=== PATIENT | female | born 1995 | race Hispanic/Latino ===

== ENCOUNTER 2018-06-01 20:40 | Emergency (ER) | payer BC ==
[2018-06-01 21:23] VITALS: BP 147/105
--- NOTE | 2018-06-01 22:46 | XRay Report ---
FINAL REPORT EXAM: XR CHEST ROUTINE 2V HISTORY: [place] TECHNIQUE: 2 views of the chest. PRIORS: None. FINDINGS: The cardiomediastinal silhouette appears normal. The lungs are clear. The bones and soft tissues are unremarkable. IMPRESSION: No evidence of acute cardiopulmonary disease
--- NOTE | 2018-06-01 23:40 | Emergency Department Report ---
- General Chief Complaint: Upper Respiratory Infection Stated Complaint: BENTLEY Time Seen by Provider: 06/01/18 23:21 Source: patient Mode of arrival: Ambulatory Limitations: No Limitations - History of Present Illness Initial Comments: Patient 23-year-old white female who presents with productive cough clear 3 weeks with sinus and head congestion postnasal drip and rhinorrhea or sore throat symptoms are exacerbated by activity patient has not taken [id number] cold medications no fevers no chills no nausea vomiting shortness of breath no wheezing patient does endorse history of sinusitis. MD Complaint: fever, sore throat, rhinorrhea, nasal congestion, sinus pain Onset/Timin -: week(s) Severity: moderate Severity scale (0 -10): 4 Quality: sharp Consistency: constant Improves With: rest Worsens With: activity Context: sick contacts Associated Symptoms: fever, chills, myalgias, headache, rhinorrhea, nasal congestion, sore throat, cough. denies: chest pain, shortness of breath, nausea, vomiting, epistaxis, hoarseness Treatments Prior to Arrival: none - Related Data Previous Rx's Medication Instructions Recorded Last Taken Type oxyCODONE /ACETAMINOPHEN [Percocet 2 tab PO Q4H PRN #30 tablet 08/01/14 Unknown Rx 5/325 mg] Famotidine [Pepcid] 20 mg PO BID #20 tablet 08/05/14 Unknown Rx LORazepam [Ativan] 1 mg PO TID PRN #15 tablet 08/05/14 Unknown Rx Amoxicillin/Potassium Clav 1 each PO BID #20 tablet 06/01/18 Unknown Rx [Augmentin 875-125 Tablet] Benzonatate [Tessalon Perles] 100 mg PO Q8HR PRN #30 capsule 06/01/18 Unknown Rx Dexamethasone [Decadron] 4 mg PO BID #6 tablet 06/01/18 Unknown Rx Ibuprofen 800 mg PO TID PRN #30 tablet 06/01/18 Unknown Rx Allergies Allergy/AdvReac Type Severity Reaction Status Date / Time No Known Allergies Allergy Unverified 07/10/14 18:23 ED Review of Systems ROS: Stated complaint: BENTLEY Other details as noted in HPI Constitutional: chills, fever, malaise Eyes: denies: eye pain, eye discharge, vision change ENT: ear pain, throat pain, congestion Respiratory: cough Cardiovascular: denies: chest pain, palpitations Endocrine: no symptoms reported Gastrointestinal: denies: abdominal pain, nausea, vomiting, diarrhea Genitourinary: denies: urgency, dysuria, frequency, discharge Musculoskeletal: denies: back pain, joint swelling, arthralgia Skin: denies: rash, lesions Neurological: headache. denies: weakness, numbness, paresthesias, confusion, abnormal gait, vertigo Psychiatric: denies: anxiety, depression Hematological/Lymphatic: denies: easy bleeding, easy bruising ED Past Medical Hx - Past Medical History Previous Medical History?: Yes Hx Hypertension: No Hx Heart Attack/AMI: No Hx Congestive Heart Failure: No Hx Diabetes: No Hx Liver Disease: No Hx Seizures: No Hx Asthma: No Hx COPD: No Additional medical history: Ovarian Cysts 08/04 - Surgical History Past Surgical History?: Yes Additional Surgical History: tonsillectomy, 2 ovarian cysts removed left side. - Social History Smoking Status: Former Smoker Substance Use Type: None - Medications Home Medications: Home Medications Medication Instructions Recorded Confirmed Last Taken Type oxyCODONE /ACETAMINOPHEN [Percocet 2 tab PO Q4H PRN #30 tablet 08/01/14 12/03/14 Unknown Rx 5/325 mg] Famotidine [Pepcid] 20 mg PO BID #20 tablet 08/05/14 12/03/14 Unknown Rx LORazepam [Ativan] 1 mg PO TID PRN #15 tablet 08/05/14 12/03/14 Unknown Rx Amoxicillin/Potassium Clav 1 each PO BID #20 tablet 06/01/18 Unknown Rx [Augmentin 875-125 Tablet] Benzonatate [Tessalon Perles] 100 mg PO Q8HR PRN #30 capsule 06/01/18 Unknown Rx Dexamethasone [Decadron] 4 mg PO BID #6 tablet 06/01/18 Unknown Rx Ibuprofen 800 mg PO TID PRN #30 tablet 06/01/18 Unknown Rx ED Physical Exam - General Limitations: No Limitations General appearance: alert, in no apparent distress - Head Head exam: Present: atraumatic, normocephalic - Eye Eye exam: Present: normal appearance, PERRL, EOMI Pupils: Present: normal accommodation - ENT ENT exam: Present: mucous membranes moist - Expanded ENT Exam Expanded TM/Canal exam: Erythema: Left TM, Canal Tenderness: Left TM Mouth exam: Present: normal external inspection, other (bilat maxillary sinus pain to palpation no swelling no no erythema no swelling ). Absent: trismus Teeth exam: Present: normal inspection Throat exam: Positive: tonsillar erythema, tonsillomegaly, other (uvula midline no stridor no wheezing no edema no exuate no lesions airway is patent ). Negative: tonsillar exudate, R peritonsillar mass, L peritonsillar mass - Neck Neck exam: Present: normal inspection, full ROM. Absent: tenderness, meningismus, lymphadenopathy, thyromegaly - Respiratory Respiratory exam: Present: normal lung sounds bilaterally. Absent: respiratory distress, wheezes, rhonchi, stridor, chest wall tenderness - Cardiovascular Cardiovascular Exam: Present: regular rate, normal rhythm, normal heart sounds. Absent: systolic murmur, diastolic murmur, rubs, gallop - GI/Abdominal GI/Abdominal exam: Present: soft, normal bowel sounds - Rectal Rectal exam: Present: deferred - Extremities Exam Extremities exam: Present: normal inspection - Back Exam Back exam: Present: normal inspection, full ROM. Absent: CVA tenderness (R), CVA tenderness (L) - Neurological Exam Neurological exam: Present: alert, oriented X3, CN II-XII intact, normal gait - Psychiatric Psychiatric exam: Present: normal affect, normal mood - Skin Skin exam: Present: warm, dry, intact, normal color. Absent: rash ED Course Vital Signs 06/01/18 20:54 Temperature 98.2 F Pulse Rate 79 Respiratory 16 Rate Blood Pressure 147/105 O2 Sat by Pulse 100 Oximetry ED Medical Decision Making - Radiology Data Radiology results: report reviewed, image reviewed Findings [facility] [address] [place] [address] XRay Report Signed Patient: CHELA CRUZ MR#: [id number] : 1995 Acct:[id number] Age/Sex: 23 / F ADM Date: 06/01/18 Loc: ED Attending Dr: Ordering Physician: WILLIE WHITFIELD MD Date of Service: 06/01/18 Procedure(s): XR chest routine 2V Accession Number(s): [id number] cc: ED MD NAHID Fluoro Time In Minutes: FINAL REPORT EXAM: XR CHEST ROUTINE 2V HISTORY: [place] TECHNIQUE: 2 views of the chest. PRIORS: None. FINDINGS: The cardiomediastinal silhouette appears normal. The lungs are clear. The bones and soft tissues are unremarkable. IMPRESSION: No evidence of acute cardiopulmonary disease Transcribed By: MLG Dictated By: PRECIOUS GARCIA MD Electronically Authenticated By: PRECIOUS GARCIA MD Signed Date/Time: 06/01/18 5810 - Medical Decision Making This is AOM with sinusitis URI will treat for signing structures raise normal no opacities no infiltrates plan Augmentin and ibuprofen Decadron Tessalon Perles refill albuterol inhaler when necessary patient with hypertensive episode this visit does not have diagnosis of hypertension will maintain BP log and bring in to follow-up R there is no chest pain no nausea vomiting no back pain dizziness no lightheadedness is A/O 3 hammertoe a steady gait with no acute distress store symptoms are only complaint, pt verbalized agreement and understanding with discharge plan. Critical care attestation.: If time is entered above; I have spent that time in minutes in the direct care of this critically ill patient, excluding procedure time. ED Disposition Clinical Impression: Sinusitis Qualifiers: Sinusitis location: maxillary Chronicity: acute Recurrence: non-recurrent Qualified Code(s): J01.00 - Acute maxillary sinusitis, unspecified AOM (acute otitis media) Qualifiers: Otitis media type: serous Laterality: left Recurrence: non-recurrent Qualified Code(s): H65.02 - Acute serous otitis media, left ear Upper respiratory infection Qualifiers: URI type: unspecified viral URI Qualified Code(s): J06.9 - Acute upper respiratory infection, unspecified Disposition: - TO HOME OR SELFCARE Is pt being admited?: No Does the pt Need Aspirin: No Condition: Stable Instructions: Sinusitis (ED), Otitis Media (ED), Upper Respiratory Infection (ED) Prescriptions: Amoxicillin/Potassium Clav [Augmentin 875-125 Tablet] 1 each PO BID #20 tablet Benzonatate [Tessalon Perles] 100 mg PO Q8HR PRN #30 capsule PRN Reason: Cough Dexamethasone [Decadron] 4 mg PO BID #6 tablet Ibuprofen 800 mg PO TID PRN #30 tablet PRN Reason: pain fever Referrals: PRIMARY CARE, [Primary Care Provider] - 3-5 Days Forms: Work/School Release Form(ED) Time of Disposition: 23:53
== END 2018-06-02 00:10 | disposition home or self-care (01) ==
LOC: ED 20:40
DX: J01.00 Acute maxillary sinusitis, unspecified (principal); H65.02 Acute serous otitis media, left ear; J06.9 Acute upper respiratory infection, unspecified; Z87.891 Personal history of nicotine dependence
CPT/HCPCS: 71046; 93005; 93010; 99283

== ENCOUNTER 2019-09-30 11:02 | Emergency (ER) | payer SELFPAY ==
[2019-09-30] MEDS ORDERED: SODIUM CHLORIDE 0.9% 1000 ML 1,000 ML IV ONE (11:10)
[2019-09-30] MEDS ORDERED: ONDANSETRON 4 MG/2 ML INJ IV ONE (11:10)
[2019-09-30] MEDS ORDERED: HYDROmorphone 1 MG/1 ML INJ IV ONE (11:10)
[2019-09-30] MEDS ORDERED: LORazepam 2 MG/ML VIAL IV ONE (11:11)
--- NOTE | 2019-09-30 11:15 | Emergency Department Report ---
ED Abdominal Pain HPI - General Chief Complaint: Abdominal Pain Stated Complaint: ABD PAIN Time Seen by Provider: 09/30/19 11:08 Source: patient, family Mode of arrival: Wheelchair Limitations: No Limitations - History of Present Illness Initial Comments: Chief complaint: " My ovaries and ulcer are hurting" HPI this is a 24-year-old female with history of peptic ulcer disease and ovarian cyst who presents with epigastric and pelvic pain. She is currently menstruating. She denies any fever. She denies any vaginal discharge otherwise. She has had pain similar on previous occasion. Has nausea without vomiting. Gradual onset of symptoms 2 days ago. Burning pain in the epigastrium. Sharp pain bilateral pelvic region. No radiation or migration of either pain. MD Complaint: abdominal pain -: Gradual, days(s) (2) Location: epigastric (Bilateral pelvis) Radiation: none Severity: severe Severity scale (0 -10): 10 Quality: sharp, burning Consistency: constant Improves With: nothing Worsens With: nothing Context: other (Currently menstruating this is her normal menstrual cycle) - Related Data Previous Rx's Medication Instructions Recorded Last Taken Type oxyCODONE /ACETAMINOPHEN [Percocet 2 tab PO Q4H PRN #30 tablet 08/01/14 Unknown Rx 5/325 mg] Famotidine [Pepcid] 20 mg PO BID #20 tablet 08/05/14 Unknown Rx LORazepam [Ativan] 1 mg PO TID PRN #15 tablet 08/05/14 Unknown Rx Amoxicillin/Potassium Clav 1 each PO BID #20 tablet 06/01/18 Unknown Rx [Augmentin 875-125 Tablet] Benzonatate [Tessalon Perles] 100 mg PO Q8HR PRN #30 capsule 06/01/18 Unknown Rx Ibuprofen [Ibuprofen 800] 800 mg PO TID PRN #30 tablet 06/01/18 Unknown Rx dexAMETHasone [Decadron] 4 mg PO BID #6 tablet 06/01/18 Unknown Rx ALBUTEROL Inhaler(NF) [VENTOLIN 2 puff IH Q4H PRN #1 inha 06/02/18 Unknown Rx Inhaler(NF)] HYDROcodone/APAP 5-325 [[place] 1 each PO Q6HR PRN #10 tablet 09/30/19 Unknown Rx 5/325] Promethazine [Phenergan] 25 mg PO Q6HR PRN #10 tab 09/30/19 Unknown Rx Allergies Allergy/AdvReac Type Severity Reaction Status Date / Time No Known Allergies Allergy Unverified 07/10/14 18:23 ED Review of Systems ROS: Stated complaint: ABD PAIN Other details as noted in HPI Comment: All other systems reviewed and negative Constitutional: denies: fever, malaise Respiratory: denies: cough Cardiovascular: denies: chest pain Gastrointestinal: abdominal pain, nausea Genitourinary: denies: urgency, dysuria, frequency, hematuria, discharge, abnormal menses, dyspareunia ED Past Medical Hx - Past Medical History Previous Medical History?: Yes Hx Hypertension: No Hx Heart Attack/AMI: No Hx Congestive Heart Failure: No Hx Diabetes: No Hx Liver Disease: No Hx Seizures: No Hx Asthma: No Hx COPD: No Additional medical history: Ovarian Cysts 08/04, peptic ulcer disease - Surgical History Past Surgical History?: Yes Additional Surgical History: tonsillectomy, 2 ovarian cysts removed left side. - Social History Smoking Status: Former Smoker Substance Use Type: None - Medications Home Medications: Home Medications Medication Instructions Recorded Confirmed Last Taken Type oxyCODONE /ACETAMINOPHEN [Percocet 2 tab PO Q4H PRN #30 tablet 08/01/14 12/03/14 Unknown Rx 5/325 mg] Famotidine [Pepcid] 20 mg PO BID #20 tablet 08/05/14 12/03/14 Unknown Rx LORazepam [Ativan] 1 mg PO TID PRN #15 tablet 08/05/14 12/03/14 Unknown Rx Amoxicillin/Potassium Clav 1 each PO BID #20 tablet 06/01/18 Unknown Rx [Augmentin 875-125 Tablet] Benzonatate [Tessalon Perles] 100 mg PO Q8HR PRN #30 capsule 06/01/18 Unknown Rx Ibuprofen [Ibuprofen 800] 800 mg PO TID PRN #30 tablet 06/01/18 Unknown Rx dexAMETHasone [Decadron] 4 mg PO BID #6 tablet 06/01/18 Unknown Rx ALBUTEROL Inhaler(NF) [VENTOLIN 2 puff IH Q4H PRN #1 inha 06/02/18 Unknown Rx Inhaler(NF)] HYDROcodone/APAP 5-325 [[place] 1 each PO Q6HR PRN #10 tablet 09/30/19 Unknown Rx 5/325] Promethazine [Phenergan] 25 mg PO Q6HR PRN #10 tab 09/30/19 Unknown Rx ED Physical Exam - General Limitations: No Limitations General appearance: alert, anxious, other (Anxious crying wailling ) - Head Head exam: Present: atraumatic, normocephalic - Eye Eye exam: Present: normal appearance - ENT ENT exam: Present: mucous membranes moist - Neck Neck exam: Present: normal inspection, full ROM - Respiratory Respiratory exam: Present: normal lung sounds bilaterally. Absent: respiratory distress, wheezes, rales, rhonchi - Cardiovascular Cardiovascular Exam: Present: regular rate, normal rhythm, normal heart sounds. Absent: systolic murmur, diastolic murmur, rubs, gallop - GI/Abdominal GI/Abdominal exam: Present: soft, normal bowel sounds. Absent: distended, tenderness, guarding, rebound - Extremities Exam Extremities exam: Present: normal inspection - Neurological Exam Neurological exam: Present: alert, oriented X3 - Psychiatric Psychiatric exam: Present: anxious - Skin Skin exam: Present: warm, dry, intact, normal color. Absent: rash ED Course Vital Signs 09/30/19 11:06 Temperature 97.5 F L Pulse Rate 102 H Blood Pressure 126/102 [Left] O2 Sat by Pulse 97 Oximetry ED Medical Decision Making - Lab Data Result diagrams: 09/30/19 12:33 09/30/19 12:33 - Radiology Data Radiology results: report reviewed 3.9 cm ovarian cyst on pelvic ultrasound - Medical Decision Making 1. Pelvic pain due to ovarian cyst: Pain improved with treatment provided in the emergency department 2. Elevated lipase likely indicative of duodenitis peptic ulcer disease patient is not drink alcohol 3. Mental health was evaluated because she stated the pain was so severe that she did not want to live anymore. Once her pain was controlled I asked her repeatedly if she had acute depression or suicidal ideation. She denied depression. She denies suicidal ideation. She is discharged home with prescription for [place] promethazine. On serial abdominal exams: Soft nontender abdomen without rebound without guarding I do not suspect acute inflammatory intra-abdominal process such as cholecystitis or appendicitis. Patient verbalized understanding of return instructions. Critical care attestation.: If time is entered above; I have spent that time in minutes in the direct care of this critically ill patient, excluding procedure time. ED Disposition Clinical Impression: Ovarian cyst, Peptic ulcer disease Disposition: TO HOME OR SELFCARE Is pt being admited?: No Does the pt Need Aspirin: No Condition: Stable Instructions: Ovarian Cyst (ED), Peptic Ulcer (ED) Prescriptions: HYDROcodone/APAP 5-325 [[place] 5/325] 1 each PO Q6HR PRN #10 tablet PRN Reason: Pain Promethazine [Phenergan] 25 mg PO Q6HR PRN #10 tab PRN Reason: Nausea Referrals: LINDSEY BURNETTE MD [Staff Physician] - 3-5 Days
--- NOTE | 2019-09-30 12:47 | Ultrasound Report ---
US pelvic complete, US transvaginal INDICATION / CLINICAL INFORMATION: Abdominal Pain. COMPARISON: None available. FINDINGS: Uterus measures 8.0 x 3.6 x 4.1 cm. The endometrial echo complex measures 3 mm. No uterine lesions ar e seen. There is a 1.3 cm right ovarian cyst. There is a 3.9 cm left ovarian cyst. Flow is seen to both ovari es. No free fluid is seen in the pelvis. IMPRESSION: 1. 3.9 cm left ovarian cyst contains a few internal septations. 2. No sonographic evidence of ovarian torsion. 3. Uterus is unremarkable. Signer Name: Nain Umanzor MD Signed: 09/30/2019 12:43 PM Workstation Name: [id number]
[2019-09-30 12:55] LABS: Basophils % (Auto) 0.4 % (0.0-1.8); Eosinophils # (Auto) 0.2 K/mm3 (0.0-0.4); Eosinophils % (Auto) 2.3 % (0.0-4.3); Hemoglobin 15.3 gm/dl (10.1-14.3); Lymphocytes # (Auto) 2.2 K/mm3 (1.2-5.4); Lymphocytes % (Auto) 21.4 % (13.4-35.0); Mean Corpuscular HGB Conc 34 % (30-34); Mean Corpuscular Volume 95 fl (79-97); Monocytes # (Auto) 0.6 K/mm3 (0.0-0.8); Monocytes % (Auto) 5.5 % (0.0-7.3); Platelet Count 247 K/mm3 (140-440); Red Blood Count 4.73 M/mm3 (3.65-5.03); Red Cell Distribution Width 14.2 % (13.2-15.2)
[2019-09-30 13:16] LABS: BUN/Creatinine Ratio 24; Blood Urea Nitrogen 17 mg/dL (7-17); Calcium 8.9 mg/dL (8.4-10.2); Hemolysis Index 145
[2019-09-30 13:31] LABS: Bilirubin,Urine NEG (Negative); Blood,Urine LG (Negative); Color,Urine Red (Yellow); Mucus,Urine 1+ /HPF; RBC,Urine > 182.0 /HPF (0.0-6.0); Urobilinogen,Urine < 2.0 mg/dL (<2.0)
[2019-09-30] MEDS ORDERED: oxyCODONE /ACETAMINOPHEN 5-325MG TAB PO ONE ×2 (14:09)
[2019-10-02 12:36] VITALS: BP 107/73
== END 2019-09-30 14:17 | disposition home or self-care (01) ==
LOC: ED 11:02
DX: N83.209 Unspecified ovarian cyst, unspecified side (principal); K27.9 Peptic ulcer, site unspecified, unspecified as acute or chronic, without hemorrhage or perforation; Z90.89 Acquired absence of other organs; Z98.890 Other specified postprocedural states; Z87.891 Personal history of nicotine dependence; Z79.1 Long term (current) use of non-steroidal anti-inflammatories (NSAID); Z79.2 Long term (current) use of antibiotics; Z79.899 Other long term (current) drug therapy
CPT/HCPCS: 36415; 76830; 76856; 80048; 81001; 83690; 84702; 85025; 87086; 96374; 96375; 99285; J1170; J2060; J2405; J7030

== ENCOUNTER 2019-10-01 03:34 | Emergency (ER) | payer SELFPAY ==
[2019-10-02 13:05] VITALS: BP 131/93
== END 2019-10-01 04:19 | disposition left against medical advice (07) ==
LOC: ED 03:34
DX: R10.30 Lower abdominal pain, unspecified (principal); Z53.21 Procedure and treatment not carried out due to patient leaving prior to being seen by health care provider

== ENCOUNTER 2019-10-06 15:34 | Emergency (ER) | payer SELFPAY ==
[2019-10-06] MEDS ORDERED: cloNIDine 0.1 MG TAB PO ONE (16:47)
[2019-10-06] MEDS ORDERED: ONDANSETRON 4 MG/2 ML INJ IM ONE (16:47)
[2019-10-06] MEDS ORDERED: MORPHINE 4 MG/1 ML INJ IM ONE (16:47)
[2019-10-06] MEDS ORDERED: ONDANSETRON 4 MG/2 ML INJ ONE (16:49)
[2019-10-06] MEDS ORDERED: MORPHINE 4 MG/1 ML INJ ONE (16:49)
--- NOTE | 2019-10-06 16:50 | Emergency Department Report ---
ED Abdominal Pain HPI - General Chief Complaint: Abdominal Pain Stated Complaint: LEFT SIDE PAIN Time Seen by Provider: 10/06/19 16:37 Source: patient Mode of arrival: Wheelchair Limitations: No Limitations - History of Present Illness Initial Comments: Patient is 24-year-old female with no significant past medical history. Patient presented to the ER complaining of left lower quadrant abdominal pain that been going on for approximately 7 days. Patient has been seen here multiple times for the same complaint in the last few days. Patient ultrasound showed a left ovarian cyst up to 4 cm with no torsion. Patient given hydrocodone and Phenergan suppository. Patient stated that the nausea and vomiting stopped but she still having the pain. Patient still denying any fever, chills, cough, shortness of breath or diarrhea. No vaginal bleeding or vaginal discharge. MD Complaint: abdominal pain -: days(s) (7) Location: LLQ Radiation: none - Related Data Previous Rx's Medication Instructions Recorded Last Taken Type oxyCODONE /ACETAMINOPHEN [Percocet 2 tab PO Q4H PRN #30 tablet 08/01/14 Unknown Rx 5/325 mg] Famotidine [Pepcid] 20 mg PO BID #20 tablet 08/05/14 Unknown Rx LORazepam [Ativan] 1 mg PO TID PRN #15 tablet 08/05/14 Unknown Rx Amoxicillin/Potassium Clav 1 each PO BID #20 tablet 06/01/18 Unknown Rx [Augmentin 875-125 Tablet] Benzonatate [Tessalon Perles] 100 mg PO Q8HR PRN #30 capsule 06/01/18 Unknown Rx Ibuprofen [Ibuprofen 800] 800 mg PO TID PRN #30 tablet 06/01/18 Unknown Rx dexAMETHasone [Decadron] 4 mg PO BID #6 tablet 06/01/18 Unknown Rx ALBUTEROL Inhaler(NF) [VENTOLIN 2 puff IH Q4H PRN #1 inha 06/02/18 Unknown Rx Inhaler(NF)] HYDROcodone/APAP 5-325 [[place] 1 each PO Q6HR PRN #10 tablet 09/30/19 Unknown Rx 5/325] Promethazine [Phenergan] 25 mg PO Q6HR PRN #10 tab 09/30/19 Unknown Rx DOXYCYCLINE Hyclate [Vibramycin 100 mg PO Q12HR #14 capsule 10/05/19 Unknown Rx CAP] Famotidine [Pepcid] 20 mg PO BID #30 tablet 10/05/19 Unknown Rx HYDROcodone/APAP 5-325 [[place] 1 - 2 each PO Q6HR PRN #10 tablet 10/05/19 Unknown Rx 5/325] Promethazine [Phenergan] 25 mg PO Q6HR PRN #20 tab 10/05/19 Unknown Rx Promethazine [Phenergan] 25 mg LA Q6HR PRN #5 supp.rect 10/05/19 Unknown Rx Allergies Allergy/AdvReac Type Severity Reaction Status Date / Time No Known Allergies Allergy Verified 10/06/19 15:38 ED Review of Systems ROS: Stated complaint: LEFT SIDE PAIN Other details as noted in HPI Comment: All other systems reviewed and negative Constitutional: denies: chills, fever Respiratory: denies: cough, shortness of breath, SOB with exertion, wheezing Cardiovascular: denies: chest pain, palpitations Gastrointestinal: abdominal pain. denies: nausea, vomiting, diarrhea, constipation, hematemesis, melena, hematochezia Musculoskeletal: denies: back pain Neurological: denies: headache, weakness, numbness, paresthesias, confusion ED Past Medical Hx - Past Medical History Hx Hypertension: No Hx Heart Attack/AMI: No Hx Congestive Heart Failure: No Hx Diabetes: No Hx Liver Disease: No Hx Seizures: No Hx Asthma: No Hx COPD: No Additional medical history: Ovarian Cysts 08/04, ulcers - Surgical History Additional Surgical History: tonsillectomy, 2 ovarian cysts removed left side. - Social History Smoking Status: Never Smoker Substance Use Type: None - Medications Home Medications: Home Medications Medication Instructions Recorded Confirmed Last Taken Type oxyCODONE /ACETAMINOPHEN [Percocet 2 tab PO Q4H PRN #30 tablet 08/01/14 12/03/14 Unknown Rx 5/325 mg] Famotidine [Pepcid] 20 mg PO BID #20 tablet 08/05/14 12/03/14 Unknown Rx LORazepam [Ativan] 1 mg PO TID PRN #15 tablet 08/05/14 12/03/14 Unknown Rx Amoxicillin/Potassium Clav 1 each PO BID #20 tablet 06/01/18 Unknown Rx [Augmentin 875-125 Tablet] Benzonatate [Tessalon Perles] 100 mg PO Q8HR PRN #30 capsule 06/01/18 Unknown Rx Ibuprofen [Ibuprofen 800] 800 mg PO TID PRN #30 tablet 06/01/18 Unknown Rx dexAMETHasone [Decadron] 4 mg PO BID #6 tablet 06/01/18 Unknown Rx ALBUTEROL Inhaler(NF) [VENTOLIN 2 puff IH Q4H PRN #1 inha 06/02/18 Unknown Rx Inhaler(NF)] HYDROcodone/APAP 5-325 [[place] 1 each PO Q6HR PRN #10 tablet 09/30/19 Unknown Rx 5/325] Promethazine [Phenergan] 25 mg PO Q6HR PRN #10 tab 09/30/19 Unknown Rx DOXYCYCLINE Hyclate [Vibramycin 100 mg PO Q12HR #14 capsule 10/05/19 Unknown Rx CAP] Famotidine [Pepcid] 20 mg PO BID #30 tablet 10/05/19 Unknown Rx HYDROcodone/APAP 5-325 [[place] 1 - 2 each PO Q6HR PRN #10 tablet 10/05/19 Unknown Rx 5/325] Promethazine [Phenergan] 25 mg PO Q6HR PRN #20 tab 10/05/19 Unknown Rx Promethazine [Phenergan] 25 mg LA Q6HR PRN #5 supp.rect 10/05/19 Unknown Rx ED Physical Exam - General Limitations: No Limitations General appearance: alert, in distress (Moderate distress secondary to pain.) - Head Head exam: Present: atraumatic, normocephalic, normal inspection - Eye Eye exam: Present: normal appearance - ENT ENT exam: Present: normal exam, normal orophraynx, mucous membranes moist. Absent: mucous membranes dry - Neck Neck exam: Present: normal inspection, full ROM. Absent: tenderness, meningismus - Respiratory Respiratory exam: Present: normal lung sounds bilaterally - Cardiovascular Cardiovascular Exam: Present: regular rate, normal rhythm, normal heart sounds - GI/Abdominal GI/Abdominal exam: Present: soft, normal bowel sounds. Absent: distended, tenderness, guarding, rebound, rigid, organomegaly, mass, bruit, pulsatile mass, hernia - Extremities Exam Extremities exam: Present: normal inspection, full ROM, normal capillary refill. Absent: pedal edema, calf tenderness - Back Exam Back exam: Present: normal inspection, full ROM. Absent: CVA tenderness (R), CVA tenderness (L) - Neurological Exam Neurological exam: Present: alert, oriented X3, CN II-XII intact, reflexes normal. Absent: normal gait, motor sensory deficit - Psychiatric Psychiatric exam: Present: normal mood - Skin Skin exam: Present: warm, intact, normal color ED Course Vital Signs 10/06/19 10/06/19 10/06/19 15:38 15:39 17:33 Temperature 97.8 F 97.8 F Pulse Rate 129 H 77 Respiratory 24 20 18 Rate Blood Pressure 163/114 163/114 130/84 Blood Pressure [Left] O2 Sat by Pulse 98 98 Oximetry 10/06/19 10/06/19 18:36 19:24 Temperature 97.5 F L Pulse Rate 77 91 H Respiratory 18 Rate Blood Pressure 130/84 Blood Pressure 154/100 [Left] O2 Sat by Pulse 100 Oximetry ED Medical Decision Making - Lab Data Result diagrams: 10/06/19 17:18 10/06/19 17:18 - Medical Decision Making Patient is 24-year-old female with no significant past medical history. Patient presented to the ER complaining of left lower quadrant abdominal pain that been going on for approximately 7 days. Patient has been seen here multiple times for the same complaint in the last few days. Patient ultrasound showed a left ovarian cyst up to 4 cm with no torsion. Patient given hydrocodone and Phenergan suppository. Patient stated that the nausea and vomiting stopped but she still having the pain. Patient still denying any fever, chills, cough, shortness of breath or diarrhea. No vaginal bleeding or vaginal discharge Patient previous record reviewed by me. Patient received multiple pain medication including morphine, Toradol and Dilaudid. Patient stated that she is feeling better now and her pain is much b chang. Patient advised to follow-up with her historic sites registrar in the next 2 to 3 days. Critical care attestation.: If time is entered above; I have spent that time in minutes in the direct care of this critically ill patient, excluding procedure time. ED Disposition Clinical Impression: Ovarian cyst, Abdominal pain Disposition: - TO HOME OR SELFCARE Is pt being admited?: No Condition: Stable Instructions: Abdominal Pain (ED) Referrals: PRIMARY CARE, [Primary Care Provider] - 3-5 Days
[2019-10-06 18:13] LABS: Basophils % (Auto) 0.4 % (0.0-1.8); Eosinophils % (Auto) 0.2 % (0.0-4.3); Hematocrit 44.1 % (30.3-42.9); Hemoglobin 14.5 gm/dl (10.1-14.3); Lymphocytes # (Auto) 2.9 K/mm3 (1.2-5.4); Lymphocytes % (Auto) 29.5 % (13.4-35.0); Mean Corpuscular HGB Conc 33 % (30-34); Mean Corpuscular Volume 94 fl (79-97); Monocytes # (Auto) 0.7 K/mm3 (0.0-0.8); Monocytes % (Auto) 7.3 % (0.0-7.3); Platelet Count 250 K/mm3 (140-440); Red Blood Count 4.69 M/mm3 (3.65-5.03)
[2019-10-06 18:23] LABS: BUN/Creatinine Ratio 17; Blood Urea Nitrogen 10 mg/dL (7-17); Hemolysis Index 8
[2019-10-06] MEDS ORDERED: KETOROLAC 60 MG/2 ML INJ ONE (18:27)
[2019-10-06] MEDS ORDERED: KETOROLAC 60 MG/2 ML INJ IM ONE (18:37)
[2019-10-06 19:26] VITALS: BP 154/100
[2019-10-06] MEDS ORDERED: HYDROmorphone 1 MG/1 ML INJ IM ONE (19:28)
== END 2019-10-06 21:00 | disposition home or self-care (01) ==
LOC: ED 15:34
DX: N83.292 Other ovarian cyst, left side (principal); Z90.79 Acquired absence of other genital organ(s); Z98.890 Other specified postprocedural states; Z79.899 Other long term (current) drug therapy
CPT/HCPCS: 36415; 80048; 85025; 96372; 99283; J1170; J1885; J2270; J2405

== ENCOUNTER 2019-10-26 07:58 | Inpatient (IN) | payer OTHER ==
--- NOTE | 2019-10-26 08:24 | Emergency Department Report ---
ED Female HPI - General Chief complaint: Abdominal Pain Stated complaint: LOWER STOMACH PAIN Time Seen by Provider: 10/26/19 08:21 Source: patient Mode of arrival: Wheelchair Limitations: No Limitations - History of Present Illness Initial comments: 24-year-old female presents to the emergency room complaining of severe abdominal pain. Patient reports that she was here for the same complaint and was diagnosed with PID yesterday and was supposed to see a MD this morning but states she could not wait as she was having severe pain nausea vomiting. Patient states she has not been able to hold down her medications that was prescribed to her. Patient was diagnosed also with an ovarian cyst on the left side. MD Complaint: pelvic pain Onset/Timin -: week(s) Location: suprapubic, LLQ Severity scale (0 -10): 10 Quality: cramping, sharp Consistency: constant Improves with: none Worsens with: none Are you Now?: No Last Menstrual Period: 09/21/19 EDC: 06/27/20 - Related Data Sexually active: Yes (3 months ago) Allergies Allergy/AdvReac Type Severity Reaction Status Date / Time No Known Allergies Allergy Verified 10/06/19 15:38 ED Review of Systems ROS: Stated complaint: LOWER STOMACH PAIN Other details as noted in HPI ED Past Medical Hx - Past Medical History Hx Hypertension: No Hx Heart Attack/AMI: No Hx Congestive Heart Failure: No Hx Diabetes: No Hx Liver Disease: No Hx Seizures: No Hx Asthma: No Hx COPD: No Additional medical history: Ovarian Cysts 08/04, ulcers - Surgical History Additional Surgical History: tonsillectomy, 2 ovarian cysts removed left side. - Social History Smoking Status: Current Every Day Smoker Substance Use Type: None ED Physical Exam - General Limitations: No Limitations General appearance: alert, in distress - Head Head exam: Present: atraumatic, normocephalic - Eye Eye exam: Present: normal appearance - ENT ENT exam: Present: mucous membranes moist - Respiratory Respiratory exam: Present: normal lung sounds bilaterally. Absent: respiratory distress - Cardiovascular Cardiovascular Exam: Present: regular rate, normal rhythm. Absent: systolic murmur, diastolic murmur, rubs, gallop - GI/Abdominal GI/Abdominal exam: Present: soft, tenderness, guarding. Absent: distended - Extremities Exam Extremities exam: Present: normal inspection - Back Exam Back exam: Present: normal inspection - Neurological Exam Neurological exam: Present: alert, oriented X3, abnormal gait - Psychiatric Psychiatric exam: Present: normal affect, normal mood - Skin Skin exam: Present: warm, dry, intact, normal color. Absent: rash ED Course Vital Signs 10/26/19 10/26/19 10/26/19 08:03 10:23 10:25 Temperature 98.9 F Pulse Rate 74 81 Respiratory 20 30 H 30 H Rate Blood Pressure 137/103 Blood Pressure 140/100 [Right] O2 Sat by Pulse 98 100 100 Oximetry ED Medical Decision Making - Lab Data Result diagrams: 10/26/19 08:08 10/26/19 08:08 Laboratory Tests 10/26/19 10/26/19 10/26/19 08:08 08:08 Unknown WBC 12.2 H RBC 4.36 Hgb 13.9 Hct 41.2 MCV 95 MCH 32 MCHC 34 RDW 13.7 Plt Count 270 Lymph % (Auto) 16.1 [place] % (Auto) 4.8 Eos % (Auto) 1.9 Baso % (Auto) 0.4 Lymph # 2.0 [place] # 0.6 Eos # 0.2 Baso # 0.0 Seg Neutrophils % 76.8 H Seg Neutrophils # 9.4 H Sodium 143 Potassium 3.9 Chloride 106.1 Carbon Dioxide 21 L Anion Gap 20 BUN 20 H Creatinine 0.7 Estimated GFR > 60 BUN/Creatinine Ratio 29 Glucose 97 Calcium 9.5 Total Bilirubin 0.30 AST 12 ALT 10 Alkaline Phosphatase 64 Total Protein 6.5 Albumin 4.1 Albumin/Globulin Ratio 1.7 Urine Color Yellow Urine Turbidity Clear Urine pH 6.0 Ur Specific [place] 1.023 Urine Protein 100 mg/dl Urine Glucose (UA) Neg Urine Ketones Neg Urine Blood Neg Urine Nitrite Neg Urine Bilirubin Neg Urine Urobilinogen < 2.0 Ur Leukocyte Esterase Neg Urine WBC (Auto) 2.0 Urine RBC (Auto) 5.0 U Epithel Cells (Auto) 2.0 Urine Mucus Few - Radiology Data Radiology results: report reviewed Referring Physician:DOMINGA CORRIGANPatient Name:CHELA CRUZPatient ID:[id number] of :[id number]:FemaleAccession:[id number] Date:3582-55-80Ysfwjd Status:Finalized Findings [facility] [address] [place] [address] Ultrasound Report Signed Patient: CHELA CRUZ MR#: [id number] : 1995 Acct:[id number] Age/Sex: 24 / F ADM Date: 10/24/19 Loc: ED Attending Dr: Ordering Physician: DOMINGA CORRIGAN MD Date of Service: 10/24/19 Procedure(s): US transvaginal Accession Number(s): [id number] cc: DOMINGA CORRIGAN MD TRANSABDOMINAL AND TRANSVAGINAL PELVIC ULTRASOUND INDICATION / CLINICAL INFORMATION: Severe/worsening left lower quadrant and left pelvic pain with nausea. COMPARISON: 10/05/2019. FINDINGS: TRANSABDOMINAL: The uterus measures approximately 5.9 x 3.4 x 3.4 cm. The endometrial stripe measures 6.2 mm AP. No fibroids are seen. The left ovary measures approximately 5.4 x 5.1 x 4.9 cm and contains a 3.6 cm hypoechoic mass. The right ovary is not seen. No free fluid is identified. TRANSVAGINAL: The uterus measures 7.0 x 3.5 x 3.5 cm. The endometrial stripe measures 5.5 mm AP. No fibroids are seen. The right ovary measures 4.5 x 4.4 x 4.6 cm and is focally heterogeneous anteriorly suggestive of a hemorrhagic cyst measuring approximately 3.7 cm. There is normal blood flow to the remainder of the right ovary on Doppler exam. The left ovary measures 6.9 x 4.1 x 5.2 cm. There is a 4.9 cm simple cyst in the left ovary. The left fallopian tube is moderately dilated. There is normal blood flow to the left ovary on Doppler exam. No free fluid is seen. IMPRESSION: 1. 4.9 cm simple left ovarian cyst has shown slight increase in size. Left hydrosalpinx has not changed. 2. 3.7 cm area of heterogeneity in the right ovary is a new finding and likely represents a hemorrhagic cyst. No evidence of ovarian torsion. Signer Name: Jamil Fraga MD Signed: 10/24/2019 12:00 PM Workstation Name: [id number] Transcribed By: RT Dictated By: Jamil Fraga MD Electronically Authenticated By: Jamil Fraga MD Signed Date/Time: 10/24/19 1200 DD/ 1152 TD/TT: Print Report Referring Physician:EDUARDO LOAIZAPatient Name:CHELA CRUZPatient ID:[id number] of :[id number]:FemaleAccession:[id number] Date:6322-64-21Nemlpv Status:Finalized Findings [facility] [address] [place] [address] Ultrasound Report Signed Patient: CHELA CRUZ MR#: [id number] : 1995 Acct:[id number] Age/Sex: 24 / F ADM Date: 10/26/19 Loc: ED Attending Dr: Ordering Physician: BARRY HOUGH Date of Service: 10/26/19 Procedure(s): US transvaginal Accession Number(s): [id number] cc: BARRY HOUGH US transvaginal, US pelvic complete INDICATION / CLINICAL INFORMATION: Pelvic pain. COMPARISON: 10/24/2019 FINDINGS: Uterus measures 7.2 cm. Myometrial echogenicity is normal. The endometrial stripe thickness is 0.5 cm. No change in the appearance of the dilated left fallopian tube or or the 2 simple left ovarian cysts. The heterogeneous right ovarian measures 3.7 cm head has not changed in size or echogenic character. No fluid collections are seen in the cul-de-sac. IMPRESSION: 1. No significant interval change in the appearance of the ultrasound. 2. The complex appearing right ovarian lesion is unchanged. Signer Name: Anibal Peralta MD Signed: 10/26/2019 10:03 AM Workstation Name: [id number] Transcribed By: AMI Dictated By: Anibal Peralta MD Electronically Authenticated By: Anibal Peralta MD Signed Date/Time: 10/26/19 1003 DD/ 0959 TD/TT: - Medical Decision Making 24-year-old female presents to the emergency room complaining of severe abdominal pain. Patient reports that she was here for the same complaint and was diagnosed with PID yesterday and was supposed to see a MD this morning but states she could not wait as she was having severe pain nausea vomiting. Barry mathews states she has not been able to hold down her medications that was prescribed to her. Patient was diagnosed also with an ovarian cyst on the left side. IV, normal saline, Rocephin 500 mg, azithromycin 500 mg IV, morphine 4 mg IV, Zofran 4 mg IV, repeat ultrasound pelvis with transvaginal. Patient has been given Dilaudid 1 mg IV and then another dose of Dilaudid 0.5 for pain management. Spoke to Dr. Rhoades [employer] she is willing to admit under observation. Went to inform patient that she will be admitted and she is tearful and rocking in the room. Will order 1 mg of Dilaudid as she will be transferred to [facility] labor and delivery floor. Critical care attestation.: If time is entered above; I have spent that time in minutes in the direct care of this critically ill patient, excluding procedure time. ED Disposition Clinical Impression: PID (acute pelvic inflammatory disease), Pelvic congestion syndrome Disposition: OP ADMIT IP TO THIS HOSP Is pt being admited?: Yes Does the pt Need Aspirin: No Condition: Stable Instructions: Abdominal Pain (ED)
[2019-10-26] MEDS ORDERED: SODIUM CHLORIDE 0.9% 1000 ML 1,000 ML IV ONE (08:26)
[2019-10-26] MEDS ORDERED: MORPHINE 4 MG/1 ML INJ IV ONE (08:26)
[2019-10-26] MEDS ORDERED: LIDOCAINE-MPF (1%) 10 MG/1 ML VIAL 5 ML INFILTRATI ONE (08:26)
[2019-10-26] MEDS ORDERED: AZITHROMYCIN 500 MG in SODIUM CHLORIDE 0.9% 250ML 250 ML IV ONE (08:26)
[2019-10-26] MEDS ORDERED: ONDANSETRON 4 MG/2 ML INJ IV ONE (08:26)
[2019-10-26] MEDS ORDERED: HYDROmorphone 1 MG/1 ML INJ IV ONE ×3 (08:56→12:58)
[2019-10-26] MEDS ORDERED: HYDROmorphone 1 MG/1 ML INJ ONE ×2 (08:58→13:01)
[2019-10-26 09:28] LABS: Basophils % (Auto) 0.4 % (0.0-1.8); Eosinophils # (Auto) 0.2 K/mm3 (0.0-0.4); Eosinophils % (Auto) 1.9 % (0.0-4.3); Hematocrit 41.2 % (30.3-42.9); Hemoglobin 13.9 gm/dl (10.1-14.3); Lymphocytes % (Auto) 16.1 % (13.4-35.0); Mean Corpuscular HGB Conc 34 % (30-34); Mean Corpuscular Volume 95 fl (79-97); Monocytes # (Auto) 0.6 K/mm3 (0.0-0.8); Monocytes % (Auto) 4.8 % (0.0-7.3); Platelet Count 270 K/mm3 (140-440); Red Blood Count 4.36 M/mm3 (3.65-5.03); Red Cell Distribution Width 13.7 % (13.2-15.2)
[2019-10-26 09:51] LABS: Alanine Aminotransferase 10 units/L (7-56); Albumin 4.1 g/dL (3.9-5); BUN/Creatinine Ratio 29; Blood Urea Nitrogen 20 mg/dL (7-17); Calcium 9.5 mg/dL (8.4-10.2); Hemolysis Index 4
--- NOTE | 2019-10-26 10:08 | Ultrasound Report ---
US transvaginal, US pelvic complete INDICATION / CLINICAL INFORMATION: Pelvic pain. COMPARISON: 10/24/2019 FINDINGS: Uterus measures 7.2 cm. Myometrial echogenicity is normal. The endometrial stripe thickness is 0.5 cm. No change in the appearance of the dilated left fallopian tube or or the 2 simple left ovarian cysts. The heterogeneous right ovarian measures 3.7 cm head has not changed in size or echogenic character. No fluid collections are seen in the cul-de-sac. IMPRESSION: 1. No significant interval change in the appearance of the ultrasound. 2. The complex appearing right ovarian lesion is unchanged. Signer Name: Anibal Peralta MD Signed: 10/26/2019 10:03 AM Workstation Name: [id number]
[2019-10-26 10:22] LABS: Bilirubin,Urine NEG (Negative); Blood,Urine NEG (Negative); Color,Urine Yellow (Yellow); Mucus,Urine FEW /HPF; Urobilinogen,Urine < 2.0 mg/dL (<2.0)
[2019-10-26] MEDS: KETOROLAC 30 MG/1 ML INJ IV PRN ×2 (14:47→22:03)
--- NOTE | 2019-10-26 15:18 | History and Physical Report ---
History of Present Illness Date of examination: 10/26/19 Date of admission: 10/26/19 12:06 Chief complaint: abdominal pain History of present illness: Pt is a 24 year old female nulligravida LMP September 2019 who presents from the ED secondary to severe abdominal pain. She has had six visits to the ED secondary to abdominal pain. She has had multiple imaging studies that reveal a normal uterus, 2 simple left ovarian cyst, a left hydrosalpinx, and a right co mplex 3.7 cm ovarian cyst. She was also diagnosed with PID within the past 10 days, but she reports being unable to tolerate the antibiotic and the pain medication due to frequent emesis which she attributes partially to her "peptic ulcer" which has gone primarily untreated due to her lack of health insurance until quite recently. She had an appt scheduled with an electric power line examiner later on the morning of presentation, but felt unable to wait for her appt due to pain. She has not had intercourse in 3 months. She has not been evaluated by a drug safety associate in over one year. While in the ED, her mother rescheduled her appt for this coming Tuesday10/29/19. 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 ovarian cystectomy ) Family/Genetic History: none, other (Anxiety per pt ) Social history: no significant social history - Obstetrical History : 0 Medications and Allergies Allergies Allergy/AdvReac Type Severity Reaction Status Date / Time No Known Allergies Allergy Verified 10/06/19 15:38 Home Medications Medication Instructions Recorded Confirmed Last Taken Type No Known Home Medications [No 10/27/19 10/27/19 Unknown History Reported Home Medications] Active Meds: Active Medications Cefepime HCl (Cefepime/Ns 2 Gm/100 Ml) 2 gm in 100 mls @ 200 mls/hr IV Q12HR ALINA; Protocol Doxycycline Hyclate 100 mg/ (Sodium Chloride) 250 mls @ 250 mls/hr IV Q12HR ALINA; Protocol Ketorolac Tromethamine (Toradol) 30 mg IV Q6H PRN PRN Reason: Pain, Moderate (4-6) Stop: 10/31/19 14:33 Last Admin: 10/26/19 14:47 Dose: 30 mg Documented by: Ondansetron HCl (Zofran) 4 mg IV Q4H PRN PRN Reason: Nausea And Vomiting Review of Systems All systems: negative Gastrointestinal: nausea, vomiting - Vital Signs Vital signs: Vital Signs Temp Pulse Resp BP Pulse Ox 98.9 F 74 20 137/103 98 10/26/19 08:03 10/26/19 08:03 10/26/19 08:03 10/26/19 08:03 10/26/19 08:03 Temp Pulse Resp BP Pulse Ox 97.3 F L 64 28 H 137/89 99 10/26/19 13:45 10/26/19 13:45 10/26/19 13:45 10/26/19 13:45 10/26/19 13:45 - Physical Exam Breasts: Positive: deferred Abdomen: Positive: soft, tenderness, guarding (voluntary). Negative: distention Extremities: Positive: normal Results Result Diagrams: 10/26/19 08:08 10/26/19 08:08 Abnormal lab results 10/26/19 10/26/19 Range/Units 08:08 08:08 WBC 12.2 H (4.5-11.0) K/mm3 Seg Neutrophils % 76.8 H (40.0-70.0) % Seg Neutrophils # 9.4 H (1.8-7.7) K/mm3 Carbon Dioxide 21 L (22-30) mmol/L BUN 20 H (7-17) mg/dL All other labs normal. Assessment and Plan A: Pelvic Pain Suspected PID Bilateral Ovarian Cyst Left Hydrosalpinx Peptic Ulcer Disease Nausea and Vomiting P: Admit for observation IV pain medication PRN IV Cefepime and Doxycycline as pt unable to tolerate PO antibiotics Pepcid IV BID Antiemetics PRN Close monitoring of clinical status
[2019-10-26] MEDS: CEFEPIME/NS 2 GM/100 ML 2 GM/100 ML BAG IV SCH ×2 (15:49→21:44)
[2019-10-26] MEDS: LACTATED RINGERS 1,000 ML IV SCH (15:50)
[2019-10-26] MEDS: ONDANSETRON 4 MG/2 ML INJ IV PRN ×2 (15:56→22:00)
[2019-10-26] MEDS: DOXYCYCLINE HYCLATE 100 MG in SODIUM CHLORIDE 0.9% 250ML 250 ML IV SCH ×2 (16:32→23:11)
[2019-10-26] MEDS: FAMOTIDINE 20 MG/2 ML INJ IV SCH ×2 (17:04→21:46)
[2019-10-26] MEDS: MORPHINE 4 MG/1 ML INJ IV PRN (17:48)
[2019-10-27] MEDS: LACTATED RINGERS 1,000 ML IV SCH ×2 (03:33→12:31)
[2019-10-27] MEDS: KETOROLAC 30 MG/1 ML INJ IV PRN ×2 (03:35→18:37)
[2019-10-27] MEDS: oxyCODONE /ACETAMINOPHEN 5-325MG TAB PO PRN (08:26)
[2019-10-27] MEDS: CEFEPIME/NS 2 GM/100 ML 2 GM/100 ML BAG IV SCH ×2 (09:54→22:14)
[2019-10-27] MEDS: FAMOTIDINE 20 MG/2 ML INJ IV SCH (09:54)
[2019-10-27] MEDS: DOXYCYCLINE HYCLATE 100 MG in SODIUM CHLORIDE 0.9% 250ML 250 ML IV SCH (10:30)
[2019-10-27] MEDS: MORPHINE 4 MG/1 ML INJ IV PRN ×2 (11:40→17:30)
[2019-10-27] MEDS: ONDANSETRON 4 MG/2 ML INJ IV PRN (12:36)
--- NOTE | 2019-10-27 13:00 | Progress Note ---
Assessment and Plan A: Pelvic Pain Suspected PID on IV Cefepime and Doxycycline Bilateral Ovarian Cyst Left Hydrosalpinx Peptic Ulcer Disease with increased sensation of burning Nausea and Vomiting P: Admit for observation IV pain medication PRN IV Cefepime and Doxycycline as pt unable to tolerate PO antibiotics Antiemetics PRN Close monitoring of clinical status GI consult regarding meds to begin treatment of peptic ulcer disease Subjective - Subjective Date of service: 10/27/19 Principal diagnosis: pelvic pain, suspected PID, ovarian cysts, peptic ulcer disease Interval history: Pt reports slight improvement in pain since yesterday, but that abdominal pain is always worse in the morning. She denies bowel movement since admission. Pt is afraid to eat because she fears emesis. Patient reports: voiding normally, pain poorly controlled, no appetite normal, no bowel movement Objective - Vital Signs Latest vital signs: Vital Signs Temp Pulse Resp BP BP Pulse Ox 10/27/19 12:15 98.8 F 54 L 20 140/85 10/27/19 08:25 97.1 F L 86 20 149/99 10/27/19 06:18 97.2 F L 63 18 119/66 98 10/27/19 03:35 18 10/27/19 01:56 97.3 F L 60 18 124/68 98 10/26/19 22:03 18 10/26/19 21:37 97.7 F 70 16 96/50 99 10/26/19 19:20 18 10/26/19 16:05 97.5 F L 62 18 132/89 100 10/26/19 13:45 97.3 F L 64 28 H 137/89 99 Intake and Output 10/26/19 10/27/19 10/27/19 22:59 06:59 14:59 Intake Total 930 1610 1336.667 Balance 930 1610 1336.667 Intake: IV 450 1250 896.667 CEFEPIME/NS 2 GM/100 ML 2 200 gm In 100 ml @ 200 mls/ hr IV Q12HR AILNA Rx#: [id number] Doxycycline Hyclate 100 250 250 mg In NaCl 0.9% 250Ml 250 ml @ 250 mls/hr IV Q12HR ALINA Rx#:[id number] Lactated Ringers 1,000 ml 1000 896.667 @ 100 mls/hr IV DIRECT ALINA Rx#:[id number] Oral 240 440 Intake, Free Water 240 360 Other: Total, Intake Amount 240 120 Voiding Method Toilet Toilet # Voids Void 1 2 1 - Exam Breasts: Present: deferred Abdomen: Present: soft, tenderness (improved from last exam ) Extremities: Present: normal
[2019-10-27] MEDS: PANTOPRAZOLE 40 MG TAB PO SCH (16:48)
[2019-10-27] MEDS: NICOTINE 7 MG/24 HR PATCH TD SCH (16:48)
[2019-10-27] MEDS: SUCRALFATE 1 GM/10 ML ORAL LIQD PO SCH ×2 (16:48→22:14)
--- NOTE | 2019-10-27 17:57 | Event Note ---
Date: 10/27/19 On-call GI physician Dr Alexis contacted. Recommended Protonix 40 mg daily and Carafate TID. Orders placed. Continue to monitor clinically.
[2019-10-28] MEDS: DOXYCYCLINE HYCLATE 100 MG in SODIUM CHLORIDE 0.9% 250ML 250 ML IV SCH ×3 (00:06→22:53)
[2019-10-28] MEDS: LACTATED RINGERS 1,000 ML IV SCH ×3 (03:22→22:45)
[2019-10-28] MEDS: KETOROLAC 30 MG/1 ML INJ IV PRN ×3 (03:25→20:35)
[2019-10-28] MEDS: oxyCODONE /ACETAMINOPHEN 5-325MG TAB PO PRN ×3 (08:54→22:31)
[2019-10-28] MEDS: MORPHINE 4 MG/1 ML INJ IV PRN ×2 (08:57→22:53)
[2019-10-28] MEDS: SUCRALFATE 1 GM/10 ML ORAL LIQD PO SCH ×3 (09:04→22:32)
[2019-10-28] MEDS: PANTOPRAZOLE 40 MG TAB PO SCH (09:04)
[2019-10-28] MEDS: ONDANSETRON 4 MG/2 ML INJ IV PRN ×2 (09:07→15:11)
--- NOTE | 2019-10-28 09:20 | Progress Note ---
Assessment and Plan A: Pelvic Pain Suspected PID on IV Cefepime and Doxycycline Bilateral Ovarian Cyst Left Hydrosalpinx Peptic Ulcer Disease with increased sensation of burning Nausea and Vomiting P: Admit for observation IV pain medication PRN IV Cefepime and Doxycycline as pt unable to tolerate PO antibiotics Antiemetics PRN Close monitoring of clinical status s/p GI consult regarding meds to begin treatment of peptic ulcer disease Plan to discharge tomorrow morning prior to her appt Subjective - Subjective Date of service: 10/28/19 Principal diagnosis: pelvic pain, suspected PID, ovarian cysts, peptic ulcer disease Interval history: Pt reports her burning pain from her ulcer is improved but her ovarian cyst pain is always worse in the morning. She has an appt with her air conditioning equipment mechanic tomorrow morning at 930 am. Patient reports: voiding normally, flatus, appetite poor, pain poorly controlled (pain is worse in the morning, an nurse is in room giving her AM dose ), no bowel movement Objective - Vital Signs Latest vital signs: Vital Signs Temp Pulse Resp BP 10/28/19 08:57 20 10/28/19 08:54 20 10/28/19 04:00 98.6 F 78 18 118/68 10/28/19 03:25 18 10/28/19 00:30 98.8 F 69 16 122/75 10/27/19 19:30 98.6 F 60 16 130/88 10/27/19 16:20 97.2 F L 56 L 20 118/78 10/27/19 12:15 98.8 F 54 L 20 140/85 Intake and Output 10/27/19 10/28/19 10/28/19 22:59 06:59 14:59 Intake Total 1540 260 Balance 1540 260 Intake: IV 1000 Lactated Ringers 1,000 ml 1000 @ 100 mls/hr IV DIRECT ALINA Rx#:[id number] Oral 240 260 Intake, Free Water 300 Other: Total, Intake Amount 120 260 Voiding Method Toilet # Voids 1 Void 1 1 # Bowel Movements 0 - Exam Breasts: Present: deferred Abdomen: Present: soft, tenderness, guarding (voluntary ) Extremities: Present: normal
[2019-10-28] MEDS: CEFEPIME/NS 2 GM/100 ML 2 GM/100 ML BAG IV SCH ×2 (10:59→22:31)
[2019-10-28] MEDS: NICOTINE 7 MG/24 HR PATCH TD SCH (17:13)
[2019-10-29] MEDS: MORPHINE 4 MG/1 ML INJ IV PRN (07:26)
[2019-10-29] MEDS: NICOTINE 7 MG/24 HR PATCH TD SCH (07:28)
[2019-10-29] MEDS: SUCRALFATE 1 GM/10 ML ORAL LIQD PO SCH (07:28)
[2019-10-29] MEDS: ONDANSETRON 4 MG/2 ML INJ IV PRN (07:34)
--- NOTE | 2019-10-29 08:03 | Discharge Summary ---
Providers - Providers Date of Admission: 10/28/19 12:23 Date of discharge: 10/29/19 Attending physician: EUSEBIO DAHL Primary care physician: CHARLEE LANDIN MD Hospitalization Reason for admission: other (pelvic pain ) Procedure details: IV antibiotics Hospital course: Pt was admitted for pain management secondary to suspected PID, ovarian cysts, and left hydrosalpinx. She received both IV and PO pain medication and her pain is much improved. She also reports a h/o peptic ulcer disease and was started on Protonix and Carafate. She has an appt on 10/29/19 at 930 am that was previously scheduled. Condition at discharge: Stable Disposition: DC- TO HOME OR SELFCARE - Discharge Diagnoses (1) Hydrosalpinx Status: Acute (2) Peptic ulcer disease Status: Acute (3) PID (acute pelvic inflammatory disease) Status: Acute (4) Ovarian cyst Status: Acute Qualifiers: Laterality: bilateral Qualified Code(s): N83.201 - Unspecified ovarian cyst, right side; N83.202 - Unspecified ovarian cyst, left side Plan - Discharge Medications Prescriptions: Sucralfate [Carafate] 1 gm PO Q6HR #420 ml oxyCODONE /ACETAMINOPHEN [Percocet 5/325] 1 tab PO Q6HR PRN #20 tablet PRN Reason: Pain Pantoprazole [Protonix] 40 mg PO QDAY #30 tablet DOXYCYCLINE Hyclate [Vibramycin CAP] 100 mg PO Q12HR #28 capsule Ondansetron [Zofran ODT TAB] 8 mg PO Q12HR PRN #30 tab.rapdis PRN Reason: Nausea - Provider Discharge Summary Activity: routine, no sex for 6 weeks, no heavy lifting 4 weeks, no strenuous exercise Additional instructions: [] Smoking cessation referral if applicable(refer to patient education folder for contact #) [] Refer to [facility] Booklet Call your doctor immediately for: * Fever > 100.5 * Heavy vaginal bleeding ( >1 pad per hour) * Severe persistent headache * Shortness of breath * Reddened, hot, painful area to leg or breast * Drainage or odor from incision. * Keep incision clean and dry at all times and follow doctor's instructions regarding bathing/showering - Follow up plan Follow up: PRIMARY CAREMD [Primary Care Provider] - 7 Days (At your scheduled appt this morning 10/29/19)
[2019-10-29 09:16] VITALS: BP 157/85
== END 2019-10-29 08:20 | disposition home or self-care (01) | DRG 759 ==
LOC: ED 07:58 → OB 12:06 → INTOOBSV 12:23 → OBSVTOIN 12:23
PROVIDERS: ADMIT Obstetrics & Gynecology; ATTEND Obstetrics & Gynecology
DX: N73.9 Female pelvic inflammatory disease, unspecified (principal); N83.201 Unspecified ovarian cyst, right side; N83.202 Unspecified ovarian cyst, left side; N70.11 Chronic salpingitis; K27.9 Peptic ulcer, site unspecified, unspecified as acute or chronic, without hemorrhage or perforation; K21.9 Gastro-esophageal reflux disease without esophagitis; N94.89 Other specified conditions associated with female genital organs and menstrual cycle; F17.200 Nicotine dependence, unspecified, uncomplicated
CPT/HCPCS: 36415; 76830; 76856; 80053; 81001; 85025; 99406; G0378; J0456; J0692; J0696; J1170; J1885; J2270; J2405; J7030; J7050; J7120

== ENCOUNTER 2020-02-26 14:38 | Emergency (ER) | payer SELFPAY ==
[2020-02-26] MEDS ORDERED: ONDANSETRON 4 MG/2 ML INJ IV ONE (15:34)
[2020-02-26] MEDS ORDERED: MORPHINE 4 MG/1 ML INJ IV ONE (15:34)
[2020-02-26] MEDS ORDERED: ONDANSETRON 4 MG/2 ML INJ ONE (15:36)
[2020-02-26] MEDS ORDERED: MORPHINE 4 MG/1 ML INJ ONE (15:37)
[2020-02-26] MEDS ORDERED: KETOROLAC 30 MG/1 ML INJ IV ONE (15:55)
--- NOTE | 2020-02-26 15:57 | Emergency Department Report ---
ED Abdominal Pain HPI - General Chief Complaint: Abdominal Pain Stated Complaint: CYST ON OVARY/ABD PAIN Time Seen by Provider: 02/26/20 15:48 Source: patient Mode of arrival: Ambulatory Limitations: No Limitations - History of Present Illness Initial Comments: Patient is 25 years old female with no significant past medical history except for ovarian cyst. Patient presented to the ER complaining of left lower quadrant pain for the last 2 to 3 days. Patient stated that she went to [facility] emergency room and she had a CT abdomen and pelvis followed by ultrasound and she was told that she had left ovarian cyst and advised to follow-up with her delinquent notice machine operator in the next 2 to 3 days. Patient stated that she made appointment with her delinquent notice machine operator but she cannot able to wait because of the pain. Patient denied any fever or chills. No nausea or vomiting. No vaginal discharge. MD Complaint: abdominal pain -: days(s) (2) Location: LLQ Severity scale (0 -10): 10 - Related Data Previous Rx's Medication Instructions Recorded Last Taken Type DOXYCYCLINE Hyclate [Vibramycin 100 mg PO Q12HR #28 capsule 10/28/19 Unknown Rx CAP] Ondansetron [Zofran ODT TAB] 8 mg PO Q12HR PRN #30 tab.rapdis 10/28/19 Unknown Rx Pantoprazole [Protonix] 40 mg PO QDAY #30 tablet 10/28/19 Unknown Rx Sucralfate [Carafate] 1 gm PO Q6HR #420 ml 10/28/19 Unknown Rx oxyCODONE /ACETAMINOPHEN [Percocet 1 tab PO Q6HR PRN #20 tablet 10/28/19 Unknown Rx 5/325] Allergies Allergy/AdvReac Type Severity Reaction Status Date / Time No Known Allergies Allergy Verified 10/06/19 15:38 ED Review of Systems ROS: Stated complaint: CYST ON OVARY/ABD PAIN Other details as noted in HPI Comment: All other systems reviewed and negative Constitutional: denies: chills, fever Respiratory: denies: cough, orthopnea, shortness of breath, SOB with exertion, SOB at rest, wheezing Cardiovascular: denies: chest pain, palpitations Gastrointestinal: abdominal pain. denies: nausea, vomiting, diarrhea, constip ation, hematemesis, melena, hematochezia Musculoskeletal: denies: back pain Neurological: denies: headache, weakness ED Past Medical Hx - Past Medical History Previous Medical History?: Yes Hx Hypertension: No Hx Heart Attack/AMI: No Hx Congestive Heart Failure: No Hx Diabetes: No Hx Liver Disease: No Hx Seizures: No Hx Asthma: No Hx COPD: No Additional medical history: Ovarian Cysts 3/, ulcers - Surgical History Past Surgical History?: Yes Additional Surgical History: tonsillectomy, 2 ovarian cysts removed left side. - Social History Smoking Status: Current Every Day Smoker - Medications Home Medications: Home Medications Medication Instructions Recorded Confirmed Last Taken Type DOXYCYCLINE Hyclate [Vibramycin 100 mg PO Q12HR #28 capsule 10/28/19 Unknown Rx CAP] Ondansetron [Zofran ODT TAB] 8 mg PO Q12HR PRN #30 tab.rapdis 10/28/19 Unknown Rx Pantoprazole [Protonix] 40 mg PO QDAY #30 tablet 10/28/19 Unknown Rx Sucralfate [Carafate] 1 gm PO Q6HR #420 ml 10/28/19 Unknown Rx oxyCODONE /ACETAMINOPHEN [Percocet 1 tab PO Q6HR PRN #20 tablet 10/28/19 Unknown Rx 5/325] ED Physical Exam - General Limitations: No Limitations General appearance: alert, in distress (Patient in moderate distress secondary to pain.) - Head Head exam: Present: atraumatic, normocephalic, normal inspection - Eye Eye exam: Present: normal appearance, PERRL - ENT ENT exam: Present: normal exam, normal orophraynx, mucous membranes moist - Neck Neck exam: Present: normal inspection, full ROM. Absent: tenderness, meningismus - Respiratory Respiratory exam: Present: normal lung sounds bilaterally - Cardiovascular Cardiovascular Exam: Present: regular rate, normal rhythm, normal heart sounds - GI/Abdominal GI/Abdominal exam: Present: soft, normal bowel sounds. Absent: distended, tenderness, guarding, rebound, rigid, organomegaly, mass, bruit, pulsatile mass, hernia - Extremities Exam Extremities exam: Present: normal inspection, full ROM, normal capillary refill. Absent: tenderness, pedal edema, calf tenderness - Back Exam Back exam: Present: normal inspection, full ROM. Absent: tenderness, CVA tenderness (R), CVA tenderness (L) - Neurological Exam Neurological exam: Present: alert, oriented X3, CN II-XII intact, reflexes normal. Absent: motor sensory deficit - Psychiatric Psychiatric exam: Present: normal mood - Skin Skin exam: Present: warm, intact, normal color ED Course Vital Signs 02/26/20 02/26/20 14:42 16:05 Temperature 98.2 F Pulse Rate 86 Respiratory 18 22 Rate Blood Pressure 156/89 [Right] O2 Sat by Pulse 100 Oximetry ED Medical Decision Making - Lab Data Result diagrams: 02/26/20 15:56 02/26/20 15:56 - Medical Decision Making Patient is 25 years old female with no significant past medical history except for ovarian cyst. Patient presented to the ER complaining of left lower quadrant pain for the last 2 to 3 days. Patient stated that she went to [facility] emergency room and she had a CT abdomen and pelvis followed by ultrasound and she was told that she had left ovarian cyst and advised to follow-up with her delinquent notice machine operator in the next 2 to 3 days. Patient stated that she made appointment with her delinquent notice machine operator but she cannot able to wait because of the pain. Patient denied any fever or chills. No nausea or vomiting. No vaginal discharge. Patient received morphine, Toradol and Dilaudid for pain. Labs reviewed and is unremarkable. Patient stated that she is feeling better. Patient strongly advised to follow-up with her delinquent notice machine operator in the next 2 to 3 days for further management. Patient also advised to return to the ER if she develop any new symptoms. Critical care attestation.: If time is entered above; I have spent that time in minutes in the direct care of this critically ill patient, excluding procedure time. ED Disposition Clinical Impression: Ovarian cyst, Abdominal pain Disposition: - TO HOME OR SELFCARE Is pt being admited?: No Condition: Stable Instructions: Abdominal Pain (ED), Ovarian Cyst (ED) Referrals: [facility] [Provider Group] - 3-5 Days [facility] [Provider Group] - 3-5 Days
[2020-02-26 16:24] LABS: Basophils % (Auto) 0.2 % (0.0-1.8); Eosinophils # (Auto) 0.1 K/mm3 (0.0-0.4); Eosinophils % (Auto) 0.9 % (0.0-4.3); Hematocrit 42.6 % (30.3-42.9); Hemoglobin 14.3 gm/dl (10.1-14.3); Lymphocytes # (Auto) 1.3 K/mm3 (1.2-5.4); Lymphocytes % (Auto) 14.3 % (13.4-35.0); Mean Corpuscular HGB Conc 34 % (30-34); Mean Corpuscular Volume 94 fl (79-97); Monocytes # (Auto) 0.4 K/mm3 (0.0-0.8); Monocytes % (Auto) 3.9 % (0.0-7.3); Platelet Count 274 K/mm3 (140-440); Red Blood Count 4.51 M/mm3 (3.65-5.03); Red Cell Distribution Width 14.6 % (13.2-15.2)
[2020-02-26 16:29] LABS: Blood Urea Nitrogen 11 mg/dL (7-17); Calcium 9.2 mg/dL (8.4-10.2); Hemolysis Index 10
[2020-02-26 16:46] LABS: BUN/Creatinine Ratio 18
[2020-02-26] MEDS ORDERED: HYDROmorphone 1 MG/1 ML INJ IV ONE (18:20)
[2020-02-26 20:33] VITALS: BP 121/68
== END 2020-02-26 20:33 | disposition home or self-care (01) ==
LOC: ED 14:38
DX: N83.202 Unspecified ovarian cyst, left side (principal); R10.32 Left lower quadrant pain; F17.200 Nicotine dependence, unspecified, uncomplicated; Z98.890 Other specified postprocedural states; Z79.899 Other long term (current) drug therapy
CPT/HCPCS: 36415; 80048; 83690; 84703; 85025; 96374; 96375; 99283; J1170; J1885; J2270; J2405

== ENCOUNTER 2020-03-10 04:59 | Emergency (ER) | payer SELFPAY ==
[2020-03-10 05:50] LABS: Basophils % (Auto) 0.2 % (0.0-1.8); Eosinophils # (Auto) 0.1 K/mm3 (0.0-0.4); Eosinophils % (Auto) 0.9 % (0.0-4.3); Hematocrit 40.5 % (30.3-42.9); Hemoglobin 14.3 gm/dl (10.1-14.3); Lymphocytes # (Auto) 1.7 K/mm3 (1.2-5.4); Lymphocytes % (Auto) 12.1 % (13.4-35.0); Mean Corpuscular HGB Conc 35 % (30-34); Mean Corpuscular Volume 93 fl (79-97); Monocytes # (Auto) 0.6 K/mm3 (0.0-0.8); Monocytes % (Auto) 4.1 % (0.0-7.3); Platelet Count 323 K/mm3 (140-440); Red Blood Count 4.34 M/mm3 (3.65-5.03); Red Cell Distribution Width 14.3 % (13.2-15.2)
[2020-03-10] MEDS ORDERED: MORPHINE 4 MG/1 ML INJ IV ONE (05:51)
[2020-03-10] MEDS ORDERED: ONDANSETRON 4 MG/2 ML INJ IV ONE ×2 (05:51→09:55)
[2020-03-10] MEDS ORDERED: SODIUM CHLORIDE 0.9% 1000 ML 1,000 ML IV ONE ×3 (05:52→09:50)
[2020-03-10 06:11] LABS: Alanine Aminotransferase 10 units/L (7-56); Albumin 4.7 g/dL (3.9-5); Blood Urea Nitrogen 12 mg/dL (7-17); Calcium 9.7 mg/dL (8.4-10.2); Hemolysis Index 10
[2020-03-10 06:12] LABS: BUN/Creatinine Ratio 20
[2020-03-10] MEDS ORDERED: HYDROmorphone 1 MG/1 ML INJ IV ONE ×4 (06:20→11:38)
[2020-03-10] MEDS ORDERED: FAMOTIDINE 20 MG/2 ML INJ IV ONE (06:20)
--- NOTE | 2020-03-10 06:25 | Emergency Department Report ---
ED Abdominal Pain HPI - General Chief Complaint: Abdominal Pain Stated Complaint: ABD PAIN Time Seen by Provider: 03/10/20 06:15 Source: patient, old records reviewed Mode of arrival: Ambulatory Limitations: No Limitations - History of Present Illness Initial Comments: 25-year-old female with a past medical history of ovarian cyst history of bilateral cystoscopy in the past, peptic ulcer disease, PID with history of lysis of pelvic adhesions presents to the hospital complains of 1 week of left- sided abdominal pain. Pain is at the left upper, middle, and lower abdomen and described as sharp, constant, and severe. No alleviating factors. Pain worse with palpation. Positive associated nausea and vomiting. Patient complains of a burning sensation in her chest and had some mild hematemesis after repeated episodes of nonbloody vomitus. She denies fever, diarrhea, melena, hematochezia. She has had similar pain in the past. As per medical record review patient was here February 25 with similar pain with recent ER visit at [facility] in which she was diagnosed with an ovarian cyst via CT and ultrasound. She is supposed to follow-up with DRY WALL APPLICATOR. She was treated for pain with Dilaudid, morphine, and Toradol during her ER visit here, discharged on tramadol and Zofran, and encouraged to follow-up. This past October patient was also admitted for intractable abdominal pain thought to be secondary to acute hydrosalpinx as PID. She had a 1 day admission and was subsequently discharged on antibiotics, meds for pain and nausea, and peptic ulcer disease. Patient also reports a past medical history of pancreatitis but denies alcohol abuse or gallstones. She does not know the cause of her previous pancreatitis. Patient is noncompliant with her PPI/H2 ebenezer medication for her stomach. She reports that she has similar repeated episodes of abdominal pain that improved after she had lysis of pelvic adhesions performed in 2014. Patient remained relatively pain-free for 5 years but now having recurrent episodes of pelvic pain. She has been unable to follow-up with DRY WALL APPLICATOR due to lack of insurance and has an appointment scheduled for the first week in March with a "income pay based"STATION ATTENDANT physician Severity scale (0 -10): 10 - Related Data Previous Rx's Medication Instructions Recorded Last Taken Type DOXYCYCLINE Hyclate [Vibramycin 100 mg PO Q12HR #28 capsule 10/28/19 Unknown Rx CAP] Ondansetron [Zofran ODT TAB] 8 mg PO Q12HR PRN #30 tab.rapdis 10/28/19 Unknown Rx Pantoprazole [Protonix] 40 mg PO QDAY #30 tablet 10/28/19 Unknown Rx Sucralfate [Carafate] 1 gm PO Q6HR #420 ml 10/28/19 Unknown Rx oxyCODONE /ACETAMINOPHEN [Percocet 1 tab PO Q6HR PRN #20 tablet 10/28/19 Unknown Rx 5/325] Naproxen [Naprosyn] 500 mg PO BID #14 tablet 02/26/20 Unknown Rx Ondansetron [Zofran Odt] 4 mg PO Q8HR PRN #14 tab.rapdis 02/26/20 Unknown Rx Ondansetron [Zofran Odt] 4 mg PO Q8HR PRN #14 tab.rapdis 02/26/20 Unknown Rx traMADoL [Ultram 50 MG tab] 50 mg PO Q4HR PRN #14 tablet 02/26/20 Unknown Rx HYDROcodone/APAP 5-325 [[place] 1 each PO Q6HR PRN #15 tablet 03/10/20 Unknown Rx 5/325] Norgestimate-Ethinyl Estradiol 1 each PO DAILY #28 tablet 03/10/20 Unknown Rx [Sprintec 28 Day Tablet] Allergies Allergy/AdvReac Type Severity Reaction Status Date / Time No Known Allergies Allergy Verified 10/06/19 15:38 ED Review of Systems ROS: Stated complaint: ABD PAIN Other details as noted in HPI Comment: All other systems reviewed and negative ED Past Medical Hx - Past Medical History Previous Medical History?: Yes Hx Hypertension: No Hx Heart Attack/AMI: No Hx Congestive Heart Failure: No Hx Diabetes: No Hx Liver Disease: No Hx Seizures: No Hx Asthma: No Hx COPD: No Additional medical history: Ovarian Cysts 08/04, ulcers, PID - Surgical History Past Surgical History?: Yes Additional Surgical History: tonsillectomy, 2 ovarian cysts removed left side. - Social History Smoking Status: Current Every Day Smoker Substance Use Type: None - Medications Home Medications: Home Medications Medication Instructions Recorded Confirmed Last Taken Type DOXYCYCLINE Hyclate [Vibramycin 100 mg PO Q12HR #28 capsule 10/28/19 Unknown Rx CAP] Ondansetron [Zofran ODT TAB] 8 mg PO Q12HR PRN #30 tab.rapdis 10/28/19 Unknown Rx Pantoprazole [Protonix] 40 mg PO QDAY #30 tablet 10/28/19 Unknown Rx Sucralfate [Carafate] 1 gm PO Q6HR #420 ml 10/28/19 Unknown Rx oxyCODONE /ACETAMINOPHEN [Percocet 1 tab PO Q6HR PRN #20 tablet 10/28/19 Unknown Rx 5/325] Naproxen [Naprosyn] 500 mg PO BID #14 tablet 02/26/20 Unknown Rx Ondansetron [Zofran Odt] 4 mg PO Q8HR PRN #14 tab.rapdis 02/26/20 Unknown Rx Ondansetron [Zofran Odt] 4 mg PO Q8HR PRN #14 tab.rapdis 02/26/20 Unknown Rx traMADoL [Ultram 50 MG tab] 50 mg PO Q4HR PRN #14 tablet 02/26/20 Unknown Rx HYDROcodone/APAP 5-325 [[place] 1 each PO Q6HR PRN #15 tablet 03/10/20 Unknown Rx 5/325] Norgestimate-Ethinyl Estradiol 1 each PO DAILY #28 tablet 03/10/20 Unknown Rx [Sprintec 28 Day Tablet] ED Physical Exam - General Limitations: No Limitations - Other Other exam information: General: Significant distress secondary to pain difficult to obtain detailed history during initial evaluation Head: Atraumatic Eyes: normal appearance ENT: Moist mucous membranes Neck: Normal appearance, no midline tenderness Chest: Clear to auscultation bilaterally CV: Regular rate and rhythm Abdomen: Soft, normal bowel sounds, diffuse abdominal tenderness greatest on the epigastric, left abdomen, and pelvic area Back: Normal inspection Extremity: Normal inspection, full range of motion Neuro: Alert O x 3, no facial asymmetry, speech clear, no gross motor sensory deficit Psych: Appropriate behavior Skin: No rash ED Course Vital Signs 03/10/20 03/10/20 03/10/20 05:05 05:19 05:48 Temperature 98.2 F Pulse Rate 110 H Respiratory 20 24 Rate Blood Pressure 113/90 Blood Pressure [Right] O2 Sat by Pulse 99 Oximetry 03/10/20 03/10/20 07:49 11:44 Temperature Pulse Rate 78 Respiratory Rate Blood Pressure Blood Pressure 137/89 120/73 [Right] O2 Sat by Pulse Oximetry - Consultations Consultation #1: 10/19/20 10:16 case d/w Dr Ray DRY WALL APPLICATOR dermatology nurse practitioner. Pt does not meet criteria for emergency surgical procedure at this time. Suggested a trial of either Sprintec or Cyndie to suppress menstrual cycles and recurrence of ovarian cyst until she can follow-up with her DRY WALL APPLICATOR ED Medical Decision Making - Lab Data Result diagrams: 03/10/20 05:25 03/10/20 05:25 Lab Results 03/10/20 03/10/20 03/10/20 Range/Units 05:25 05:25 05:25 WBC 14.1 H (4.5-11.0) K/mm3 RBC 4.34 (3.65-5.03) M/mm3 Hgb 14.3 (10.1-14.3) gm/dl Hct 40.5 (30.3-42.9) % MCV 93 (79-97) fl MCH 33 H (28-32) pg MCHC 35 H (30-34) % RDW 14.3 (13.2-15.2) % Plt Count 323 (140-440) K/mm3 Lymph % (Auto) 12.1 L (13.4-35.0) % Chester % (Auto) 4.1 (0.0-7.3) % Eos % (Auto) 0.9 (0.0-4.3) % Baso % (Auto) 0.2 (0.0-1.8) % Lymph # (Auto) 1.7 (1.2-5.4) K/mm3 Chester # (Auto) 0.6 (0.0-0.8) K/mm3 Eos # (Auto) 0.1 (0.0-0.4) K/mm3 Baso # (Auto) 0.0 (0.0-0.1) K/mm3 Seg Neutrophils % 82.7 H (40.0-70.0) % Seg Neutrophils # 11.6 H (1.8-7.7) K/mm3 Sodium 142 (137-145) mmol/L Potassium 3.5 L (3.6-5.0) mmol/L Chloride 101.9 (98-107) mmol/L Carbon Dioxide 24 (22-30) mmol/L Anion Gap 20 mmol/L BUN 12 (7-17) mg/dL Creatinine 0.6 (0.6-1.2) mg/dL Estimated GFR > 60 ml/min BUN/Creatinine Ratio 20 % Glucose 119 H (65-100) mg/dL Calcium 9.7 (8.4-10.2) mg/dL Total Bilirubin 0.40 (0.1-1.2) mg/dL AST 14 (5-40) units/L ALT 10 (7-56) units/L Alkaline Phosphatase 74 (35-129) units/L Total Protein 7.4 (6.3-8.2) g/dL Albumin 4.7 (3.9-5) g/dL Albumin/Globulin Ratio 1.7 % Lipase 22 (13-60) units/L HCG, Qual Negative (Negative) Urine Color (Yellow) Urine Turbidity (Clear) Urine pH (5.0-7.0) Ur Specific Thornton (1.003-1.030) Urine Protein (Negative) mg/dL Urine Glucose (UA) (Negative) mg/dL Urine Ketones (Negative) mg/dL Urine Blood (Negative) Urine Nitrite (Negative) Urine Bilirubin (Negative) Urine Urobilinogen (<2.0) mg/dL Ur Leukocyte Esterase (Negative) Urine WBC (Auto) (0.0-6.0) /HPF Urine RBC (Auto) (0.0-6.0) /HPF U Epithel Cells (Auto) (0-13.0) /HPF Urine Opiates Screen Urine Methadone Screen Ur Barbiturates Screen Ur Phencyclidine Scrn Ur Amphetamines Screen U Benzodiazepines Scrn Urine Cocaine Screen U Marijuana (THC) Screen Drugs of Abuse Note 03/10/20 03/10/20 Range/Units 10:45 10:45 WBC (4.5-11.0) K/mm3 RBC (3.65-5.03) M/mm3 Hgb (10.1-14.3) gm/dl Hct (30.3-42.9) % MCV (79-97) fl MCH (28-32) pg MCHC (30-34) % RDW (13.2-15.2) % Plt Count (140-440) K/mm3 Lymph % (Auto) (13.4-35.0) % Chester % (Auto) (0.0-7.3) % Eos % (Auto) (0.0-4.3) % Baso % (Auto) (0.0-1.8) % Lymph # (Auto) (1.2-5.4) K/mm3 Chester # (Auto) (0.0-0.8) K/mm3 Eos # (Auto) (0.0-0.4) K/mm3 Baso # (Auto) (0.0-0.1) K/mm3 Seg Neutrophils % (40.0-70.0) % Seg Neutrophils # (1.8-7.7) K/mm3 Sodium (137-145) mmol/L Potassium (3.6-5.0) mmol/L Chloride (98-107) mmol/L Carbon Dioxide (22-30) mmol/L Anion Gap mmol/L BUN (7-17) mg/dL Creatinine (0.6-1.2) mg/dL Estimated GFR ml/min BUN/Creatinine Ratio % Glucose (65-100) mg/dL Calcium (8.4-10.2) mg/dL Total Bilirubin (0.1-1.2) mg/dL AST (5-40) units/L ALT (7-56) units/L Alkaline Phosphatase (35-129) units/L Total Protein (6.3-8.2) g/dL Albumin (3.9-5) g/dL Albumin/Globulin Ratio % Lipase (13-60) units/L HCG, Qual (Negative) Urine Color Yellow (Yellow) Urine Turbidity Clear (Clear) Urine pH 6.0 (5.0-7.0) Ur Specific Thornton 1.060 H (1.003-1.030) Urine Protein >500 (Negative) mg/dL Urine Glucose (UA) Neg (Negative) mg/dL Urine Ketones 20 (Negative) mg/dL Urine Blood Mod (Negative) Urine Nitrite Neg (Negative) Urine Bilirubin Neg (Negative) Urine Urobilinogen < 2.0 (<2.0) mg/dL Ur Leukocyte Esterase Neg (Negative) Urine WBC (Auto) 2.0 (0.0-6.0) /HPF Urine RBC (Auto) 21.0 (0.0-6.0) /HPF U Epithel Cells (Auto) 6.0 (0-13.0) /HPF Urine Opiates Screen Presumptive positive Urine Methadone Screen Presumptive negative Ur Barbiturates Screen Presumptive negative Ur Phencyclidine Scrn Presumptive negative Ur Amphetamines Screen Presumptive negative U Benzodiazepines Scrn Presumptive negative Urine Cocaine Screen Presumptive positive U Marijuana (THC) Screen Presumptive positive Drugs of Abuse Note Disclamer - Radiology Data Radiology results: report reviewed CT ABDOMEN AND PELVIS WITH CONTRAST HISTORY: MAIN COMPARISON: 10/05/2019 TECHNIQUE: Axial CT images were obtained through the abdomen and pelvis after 100 cc of Omnipaque 300 intravenously. Sagittal and coronal reformatted images. All CT scans at this location are performed using CT dose reduction for ALARA by means of automated exposure control. FINDINGS: CT ABDOMEN: Lung Bases: Clear. Liver: No significant abnormality. Biliary: No significant abnormality. Spleen: No significant abnormality. Unenlarged. Pancreas: No significant abnormality. Adrenals: No significant abnormality. Kidneys: No significant abnormality. Lymphatics: No lymphadenopathy. Vasculature: No significant abnormality. Bowel/Peritoneum: No significant abnormality. No free air. No free fluid. Normal appendix. CT PELVIS: : A 3.1 cm left ovarian cyst is identified which has decreased from 3.9 cm on the previous exam. Mild left hydrosalpinx is again suggested which is unchanged. A 2.1 cm right ovarian cyst is identified. The uterus, endometrium and bladder are unremarkable. Osseous Structures: No significant abnormality. Additional Findings: None IMPRESSION: Bilateral ovarian cysts as described. Suggestion of mild left hydrosalpinx which is unchanged. No acute inflammatory process is appreciated. US pelvis duplex doppler comp, US transvaginal INDICATION / CLINICAL INFORMATION: ovarian cysts, left hydrosalpinx. COMPARISON: 10/26/2019 FINDINGS: Uterus again appears unremarkable. Endometrial stripe measures 7 mm in thickness. Left hydrosalpinx is unchanged. Today's exam shows a single, complex 2.2 cm lesi on in the left ovary. Right ovary contains a 2.2 cm cyst and a 1.6 cm complex lesion. Color Doppler imaging shows normal vascular flow in both ovaries. No free fluid. IMPRESSION: 1. Cystic and complex lesions in both ovaries, as described. 2. Stable left hydrosalpinx. - Medical Decision Making Patient presents with exacerbation of ongoing pelvic pain with repeat diagnosis of ovarian cyst and left hydrosalpinx. Patient needs to follow-up with STATION ATTENDANT.. UDS positive for cocaine, marijuana, and opioids. Patient received multiple doses of IV Dilaudid for her pain here today and CT shows. Patient may benefit from repeat lysis of pelvic adhesions since she received relief for several years after her last procedure however, she does not meet criteria for emergent inpatient admission and treatment. Patient will be started on control to decrease the incidence of ovarian cyst formation and discharged on pain medicine with DRY WALL APPLICATOR follow-up Critical Care Time: No Critical care attestation.: If time is entered above; I have spent that time in minutes in the direct care of this critically ill patient, excluding procedure time. ED Disposition Clinical Impression: Pelvic pain, Hydrosalpinx, Cocaine abuse, Ovarian cyst Disposition: OP ADMIT IP TO THIS HOSP Is pt being admited?: No Does the pt Need Aspirin: No Condition: Stable Instructions: Abdominal Pain (ED), Ovarian Cyst (ED), Cocaine Abuse (ED), Ethinyl Estradiol/Norgestimate (By mouth) Additional Instructions: Take the medication as prescribed. Follow-up with your doctor or doctor/clinic provided. Return if symptoms worsen as indicated by your discharge instructions. Your prescribed control pills as per recommendation of DRY WALL APPLICATOR doctor. These typically contain 21 tablets of hormone therapy and 7 days of placebo/nonmedicated pills. Skip the placebo pills and take the hormone pills daily continuously to prevent a menstrual cycle and decreased ovarian cyst formation. Follow-up with STATION ATTENDANT to determine if you need to continue control pills to help with pain. Smoking cigarettes and taking control pills can increase your risk of blood clots. Prescriptions: HYDROcodone/APAP 5-325 [Ipswich 5/325] 1 each PO Q6HR PRN #15 tablet PRN Reason: Pain Norgestimate-Ethinyl Estradiol [Sprintec 28 Day Tablet] 1 each PO DAILY #28 tablet Referrals: ESSENCE MERRITT MD [Staff Physician] - 3-5 Days (bottle label inspector doctor ) Time of Disposition: 12:44
--- NOTE | 2020-03-10 08:02 | Cat Scan Report ---
CT ABDOMEN AND PELVIS WITH CONTRAST HISTORY: MAIN COMPARISON: 10/05/2019 TECHNIQUE: Axial CT images were obtained through the abdomen and pelvis after 100 cc of Omnipaque 300 intravenously. Sagittal and coronal reformatted images. All CT scans at this location are performed using CT dose reduction for ALARA by means of automated exposure control. FINDINGS: CT ABDOMEN: Lung Bases: Clear. Liver: No significant abnormality. Biliary: No significant abnormality. Spleen: No significant abnormality. Unenlarged. Pancreas: No significant abnormality. Adrenals: No significant abnormality. Kidneys: No significant abnormality. Lymphatics: No lymphadenopathy. Vasculature: No significant abnormality. Bowel/Peritoneum: No significant abnormality. No free air. No free fluid. Normal appendix. CT PELVIS: : A 3.1 cm left ovarian cyst is identified which has decreased from 3.9 cm on the previous exam. Mi ld left hydrosalpinx is again suggested which is unchanged. A 2.1 cm right ovarian cyst is identified . The uterus, endometrium and bladder are unremarkable. Osseous Structures: No significant abnormality. Additional Findings: None IMPRESSION: Bilateral ovarian cysts as described. Suggestion of mild left hydrosalpinx which is unchanged. No acu te inflammatory process is appreciated. Signer Name: Dyllan Weller Jr, MD Signed: 03/10/2020 7:58 AM Workstation Name: [id number]
[2020-03-10] MEDS ORDERED: PANTOPRAZOLE 40 MG INJ IV ONE (08:27)
--- NOTE | 2020-03-10 09:41 | Ultrasound Report ---
US pelvis duplex doppler comp, US transvaginal INDICATION / CLINICAL INFORMATION: ovarian cysts, left hydrosalpinx. COMPARISON: 10/26/2019 FINDINGS: Uterus again appears unremarkable. Endometrial stripe measures 7 mm in thickness. Left hydrosalpinx is unchanged. Today's exam shows a single, complex 2.2 cm lesion in the left ovary. Right ovary contains a 2.2 cm cyst and a 1.6 cm complex lesion. Color Doppler imaging shows normal vascular flow in both ovaries. No free fluid. IMPRESSION: 1. Cystic and complex lesions in both ovaries, as described. 2. Stable left hydrosalpinx. Signer Name: Stevo Macdonald MD Signed: 03/10/2020 9:36 AM Workstation Name: [id number]
[2020-03-10 11:14] LABS: Bilirubin,Urine NEG (Negative); Blood,Urine MOD (Negative); Color,Urine Yellow (Yellow); Urobilinogen,Urine < 2.0 mg/dL (<2.0)
[2020-03-10 11:16] LABS: Amphetamine Screen,Urine PRESUMPTIVE NEGATIVE; Benzodiazepines Screen,Urine PRESUMPTIVE NEGATIVE; Cannabinoid Screen,Urine PRESUMPTIVE POSITIVE; Cocaine Screen,Urine PRESUMPTIVE POSITIVE; Methadone Screen,Urine PRESUMPTIVE NEGATIVE; Opiate Screen,Urine PRESUMPTIVE POSITIVE
[2020-03-10 11:19] LABS: Protein,Urine >500 mg/dL (Negative)
[2020-03-10 11:45] VITALS: BP 120/73
== END 2020-03-10 13:56 | disposition home or self-care (01) ==
LOC: ED 04:59
DX: L73.2 Hidradenitis suppurativa (principal); F14.10 Cocaine abuse, uncomplicated; N83.291 Other ovarian cyst, right side
CPT/HCPCS: 36415; 74177; 76830; 80053; 80307; 81001; 83690; 84703; 85025; 93975; 96361; 96374; 96375; 96376; 99284; C9113; J1170; J2270; J2405; J7030; Q9967

== ENCOUNTER 2020-03-11 12:25 | Emergency (ER) | payer SELFPAY ==
--- NOTE | 2020-03-11 12:58 | Event Note ---
ED Screening Note Date of service: 03/11/20 Time: 12:56 ED Screening Note: c/o of recurrent abdominal pain x today seen here yesterday for abdominal pain-had CT and transvaginal US+cocaine, THC, and opiates states vomiting uncontrolled with zofran This initial assessment/diagnostic orders/clinical plan/treatment(s) is/are subject to change based on patients health status, clinical progression and re- assessment by fellow clinical providers in the ED. Further treatment and workup at subsequent clinical providers discretion. Patient/guardian urged not to elope from the ED as their condition may be serious if not clinically assessed and managed. Initial orders include: labs
[2020-03-11 13:36] LABS: Basophils % (Auto) 0.5 % (0.0-1.8); Eosinophils # (Auto) 0.1 K/mm3 (0.0-0.4); Eosinophils % (Auto) 1.9 % (0.0-4.3); Hematocrit 40.2 % (30.3-42.9); Hemoglobin 13.7 gm/dl (10.1-14.3); Lymphocytes # (Auto) 2.1 K/mm3 (1.2-5.4); Lymphocytes % (Auto) 26.9 % (13.4-35.0); Mean Corpuscular HGB Conc 34 % (30-34); Mean Corpuscular Volume 95 fl (79-97); Monocytes # (Auto) 0.4 K/mm3 (0.0-0.8); Monocytes % (Auto) 5.7 % (0.0-7.3); Platelet Count 310 K/mm3 (140-440); Red Blood Count 4.25 M/mm3 (3.65-5.03)
[2020-03-11 13:57] LABS: Alanine Aminotransferase 10 units/L (7-56); Albumin 4.3 g/dL (3.9-5); Blood Urea Nitrogen 10 mg/dL (7-17); Calcium 9.3 mg/dL (8.4-10.2); Hemolysis Index 7
[2020-03-11 14:00] LABS: BUN/Creatinine Ratio 20
[2020-03-11] MEDS ORDERED: SODIUM CHLORIDE 0.9% 1000 ML 1,000 ML ONE (14:45)
[2020-03-11] MEDS ORDERED: ONDANSETRON 4 MG/2 ML INJ ONE (14:45)
[2020-03-11] MEDS ORDERED: MORPHINE 4 MG/1 ML INJ ONE (14:45)
[2020-03-11 15:17] VITALS: BP 134/82
[2020-03-11] MEDS ORDERED: ONDANSETRON 4 MG/2 ML INJ IV ONE (15:53)
[2020-03-11] MEDS: SODIUM CHLORIDE 0.9% 1000 ML 1,000 ML IV ONE ×2 (15:54→16:17)
[2020-03-11] MEDS ORDERED: DICYCLOMINE 20 MG/2 ML INJ IM ONE (16:04)
[2020-03-11] MEDS ORDERED: PANTOPRAZOLE 40 MG INJ IV ONE (16:04)
[2020-03-11] MEDS ORDERED: ALUM-MAG HYDROXIDE-SIMETHICONE 200-200-20MG/5ML ORAL LIQD 30 ML PO ONE (16:05)
--- NOTE | 2020-03-11 17:30 | Emergency Department Report ---
ED General Adult HPI - General Chief complaint: Abdominal Pain Stated complaint: ABD PAINS Time Seen by Provider: 03/11/20 12:55 Source: patient Mode of arrival: Ambulatory Limitations: No Limitations - History of Present Illness Initial comments: Patient is a 25-year-old female who presents emergency room with complaints of generalized abdominal pain that began this morning. she states it feels like a burning sensation. She has associated nausea, vomiting, increased gas, and increased belching. She denies any fever, diarrhea, dysuria, vaginal discharge or irritation, hematochezia, hematemesis, melena. She states that she has an appointment with [facility] on March 26. Patient was evaluated in the emergency department on 03/10/[address] abdomen pelvis with IV contrast and a pelvic ultrasound performed at that time which showed bilateral ovarian cyst. She also had a UA which was within normal limits. She had a UDS which showed positive for cocaine and marijuana. She was prescribed hydrocodone, Zofran, control. She states that she has a past medical history of PUD and takes Carafate and Protonix. No allergies to medications. - Related Data Previous Rx's Medication Instructions Recorded Last Taken Type DOXYCYCLINE Hyclate [Vibramycin 100 mg PO Q12HR #28 capsule 10/28/19 Unknown Rx CAP] Ondansetron [Zofran ODT TAB] 8 mg PO Q12HR PRN #30 tab.rapdis 10/28/19 Unknown Rx Pantoprazole [Protonix] 40 mg PO QDAY #30 tablet 10/28/19 Unknown Rx Sucralfate [Carafate] 1 gm PO Q6HR #420 ml 10/28/19 Unknown Rx oxyCODONE /ACETAMINOPHEN [Percocet 1 tab PO Q6HR PRN #20 tablet 10/28/19 Unknown Rx 5/325] Naproxen [Naprosyn] 500 mg PO BID #14 tablet 02/26/20 Unknown Rx Ondansetron [Zofran Odt] 4 mg PO Q8HR PRN #14 tab.rapdis 02/26/20 Unknown Rx Ondansetron [Zofran Odt] 4 mg PO Q8HR PRN #14 tab.rapdis 02/26/20 Unknown Rx traMADoL [Ultram 50 MG tab] 50 mg PO Q4HR PRN #14 tablet 02/26/20 Unknown Rx HYDROcodone/APAP 5-325 [[place] 1 each PO Q6HR PRN #15 tablet 03/10/20 Unknown Rx 5/325] Norgestimate-Ethinyl Estradiol 1 each PO DAILY #28 tablet 03/10/20 Unknown Rx [Sprintec 28 Day Tablet] Ondansetron [Zofran Odt] 4 mg PO Q8HR PRN #20 tab.rapdis 03/10/20 Unknown Rx Hyoscyamine Subl [Levsin Sl 0.125 0.125 mg SL Q6HR PRN #7 tab 03/11/20 Unknown Rx TAB] Mag Hydrox/Aluminum Hyd/Simeth 10 ml PO TID PRN #1 bottle 03/11/20 Unknown Rx [Maalox Advanced Suspension] Promethazine HCl [Phenergan SUPPOS] 25 mg RC Q8HR PRN #7 supp.rect 03/11/20 Unknown Rx Allergies Allergy/AdvReac Type Severity Reaction Status Date / Time No Known Allergies Allergy Verified 10/06/19 15:38 ED Review of Systems ROS: Stated complaint: ABD PAINS Other details as noted in HPI Comment: All other systems reviewed and negative ED Past Medical Hx - Past Medical History Hx Hypertension: No Hx Heart Attack/AMI: No Hx Congestive Heart Failure: No Hx Diabetes: No Hx Liver Disease: No Hx Seizures: No Hx Asthma: No Hx COPD: No Additional medical history: Ovarian Cysts 08/04, ulcers, PID - Surgical History Additional Surgical History: tonsillectomy, 2 ovarian cysts removed left side. - Social History Smoking Status: Current Every Day Smoker - Medications Home Medications: Home Medications Medication Instructions Recorded Confirmed Last Taken Type DOXYCYCLINE Hyclate [Vibramycin 100 mg PO Q12HR #28 capsule 10/28/19 Unknown Rx CAP] Ondansetron [Zofran ODT TAB] 8 mg PO Q12HR PRN #30 tab.rapdis 10/28/19 Unknown Rx Pantoprazole [Protonix] 40 mg PO QDAY #30 tablet 10/28/19 Unknown Rx Sucralfate [Carafate] 1 gm PO Q6HR #420 ml 10/28/19 Unknown Rx oxyCODONE /ACETAMINOPHEN [Percocet 1 tab PO Q6HR PRN #20 tablet 10/28/19 Unknown Rx 5/325] Naproxen [Naprosyn] 500 mg PO BID #14 tablet 02/26/20 Unknown Rx Ondansetron [Zofran Odt] 4 mg PO Q8HR PRN #14 tab.rapdis 02/26/20 Unknown Rx Ondansetron [Zofran Odt] 4 mg PO Q8HR PRN #14 tab.rapdis 02/26/20 Unknown Rx traMADoL [Ultram 50 MG tab] 50 mg PO Q4HR PRN #14 tablet 02/26/20 Unknown Rx HYDROcodone/APAP 5-325 [[place] 1 each PO Q6HR PRN #15 tablet 03/10/20 Unknown Rx 5/325] Norgestimate-Ethinyl Estradiol 1 each PO DAILY #28 tablet 03/10/20 Unknown Rx [Sprintec 28 Day Tablet] Ondansetron [Zofran Odt] 4 mg PO Q8HR PRN #20 tab.rapdis 03/10/20 Unknown Rx Hyoscyamine Subl [Levsin Sl 0.125 0.125 mg SL Q6HR PRN #7 tab 03/11/20 Unknown Rx TAB] Mag Hydrox/Aluminum Hyd/Simeth 10 ml PO TID PRN #1 bottle 03/11/20 Unknown Rx [Maalox Advanced Suspension] Promethazine HCl [Phenergan SUPPOS] 25 mg RC Q8HR PRN #7 supp.rect 03/11/20 Unknown Rx ED Physical Exam - General Limitations: No Limitations General appearance: alert, in no apparent distress - Head Head exam: Present: atraumatic, normocephalic - Eye Eye exam: Present: normal appearance - ENT ENT exam: Present: mucous membranes moist - Respiratory Respiratory exam: Present: normal lung sounds bilaterally. Absent: respiratory distress, wheezes, rales, rhonchi, stridor, chest wall tenderness, accessory muscle use, decreased breath sounds, prolonged expiratory - Cardiovascular Cardiovascular Exam: Present: regular rate, normal rhythm, normal heart sounds. Absent: systolic murmur, diastolic murmur, rubs, gallop - GI/Abdominal GI/Abdominal exam: Present: soft, normal bowel sounds. Absent: distended, tenderness, guarding, rebound, rigid - Neurological Exam Neurological exam: Present: alert, oriented X3 - Psychiatric Psychiatric exam: Present: normal affect, normal mood - Skin Skin exam: Present: warm, dry, intact ED Course Vital Signs 03/11/20 03/11/20 12:56 15:09 Temperature 97.8 F Pulse Rate 77 88 Respiratory 18 18 Rate Blood Pressure 129/85 Blood Pressure 134/82 [Left] O2 Sat by Pulse 99 100 Oximetry ED Medical Decision Making - Lab Data Result diagrams: 03/11/20 13:12 03/11/20 13:12 Lab Results 03/11/20 03/11/20 03/11/20 Range/Units 13:12 13:12 13:12 WBC 7.7 (4.5-11.0) K/mm3 RBC 4.25 (3.65-5.03) M/mm3 Hgb 13.7 (10.1-14.3) gm/dl Hct 40.2 (30.3-42.9) % MCV 95 (79-97) fl MCH 32 (28-32) pg MCHC 34 (30-34) % RDW 14.0 (13.2-15.2) % Plt Count 310 (140-440) K/mm3 Lymph % (Auto) 26.9 (13.4-35.0) % [place] % (Auto) 5.7 (0.0-7.3) % Eos % (Auto) 1.9 (0.0-4.3) % Baso % (Auto) 0.5 (0.0-1.8) % Lymph # (Auto) 2.1 (1.2-5.4) K/mm3 [place] # (Auto) 0.4 (0.0-0.8) K/mm3 Eos # (Auto) 0.1 (0.0-0.4) K/mm3 Baso # (Auto) 0.0 (0.0-0.1) K/mm3 Seg Neutrophils % 65.0 (40.0-70.0) % Seg Neutrophils # 5.0 (1.8-7.7) K/mm3 Sodium 140 (137-145) mmol/L Potassium 3.9 (3.6-5.0) mmol/L Chloride 103.8 (98-107) mmol/L Carbon Dioxide 24 (22-30) mmol/L Anion Gap 16 mmol/L BUN 10 (7-17) mg/dL Creatinine 0.5 L (0.6-1.2) mg/dL Estimated GFR > 60 ml/min BUN/Creatinine Ratio 20 % Glucose 84 (65-100) mg/dL Calcium 9.3 (8.4-10.2) mg/dL Total Bilirubin 0.60 (0.1-1.2) mg/dL AST 13 (5-40) units/L ALT 10 (7-56) units/L Alkaline Phosphatase 69 (35-129) units/L Total Protein 6.7 (6.3-8.2) g/dL Albumin 4.3 (3.9-5) g/dL Albumin/Globulin Ratio 1.8 % Lipase 14 (13-60) units/L HCG, Qual Negative (Negative) - Medical Decision Making Patient is a 25-year-old female who presents emergency room with complaints of generalized abdominal pain that began this morning. she states it feels like a burning sensation. She has associated nausea, vomiting, increased gas, and in creased belching. She denies any fever, diarrhea, dysuria, vaginal discharge or irritation, hematochezia, hematemesis, melena. She states that she has an appointment with [facility] on March 26. Patient was evaluated in the emergency department on 03/10/[address] abdomen pelvis with IV contrast and a pelvic ultrasound performed at that time which showed bilateral ovarian cyst. She also had a UA which was within normal limits. She had a UDS which showed positive for cocaine and marijuana. She was prescribed hydrocodone, Zofran, control. She states that she has a past medical history of PUD and takes Carafate and Protonix. No allergies to medications. Vitals are normal. P atient has no abdominal tenderness on exam, no guarding, no rebound, no rigidity, abdomen is soft, no peritoneal signs, normal bowel sounds, patient has multiple episodes of burping during examination. Labs are normal. Patient given 1 L IV fluids, Zofran, Protonix, Bentyl, Maalox. Appears patient symptoms most likely related to PUD/GERD. Patient was able to tolerate p.o. intake while in the emergency department and had no further episodes of vomiting. Patient given prescription for Maalox, Levsin, Phenergan suppositories. advised pt please take medication as prescribed. Increase your water intake. Please follow the diet for ulcers. Avoid marijuana use. Follow-up with your primary care doctor. Follow-up with your [facility]. Follow-up with a GI doctor. Return to emergency room for any new or worsening symptoms. - Differential Diagnosis Gastritis, PUD, GERD, obstruction, chronic pain, cannabinoid hyperemesis Critical care attestation.: If time is entered above; I have spent that time in minutes in the direct care of this critically ill patient, excluding procedure time. ED Disposition Clinical Impression: Peptic ulcer disease Abdominal pain Qualifiers: Abdominal location: unspecified location Qualified Code(s): R10.9 - Unspecified abdominal pain Nausea and vomiting Qualifiers: Vomiting type: unspecified Vomiting Intractability: non-intractable Qualified Code(s): R11.2 - Nausea with vomiting, unspecified Disposition: DC- TO HOME OR SELFCARE Is pt being admited?: No Does the pt Need Aspirin: No Condition: Stable Instructions: Peptic Ulcer (ED), Diet for Ulcers and Gastritis (ED), Abdominal Pain (ED) Additional Instructions: Please take medication as prescribed. Increase your water intake. Please follow the diet for ulcers. Avoid marijuana use. Follow-up with your primary care doctor. Follow-up with your [facility]. Follow-up with a GI doctor. Return to emergency room for any new or worsening symptoms. 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
== END 2020-03-11 17:46 | disposition home or self-care (01) ==
LOC: ED 12:25
DX: K27.3 Acute peptic ulcer, site unspecified, without hemorrhage or perforation (principal); F17.200 Nicotine dependence, unspecified, uncomplicated; Z90.79 Acquired absence of other genital organ(s); Z79.899 Other long term (current) drug therapy
CPT/HCPCS: 36415; 80053; 83690; 84703; 85025; 96361; 96372; 96374; 96375; 99283; C9113; J0500; J2405; J7030; J2270

== ENCOUNTER 2020-08-06 19:46 | Inpatient (IN) | payer OTHER ==
[2020-08-06] MEDS ORDERED: SODIUM CHLORIDE 0.9% 1000 ML 1,000 ML IV ONE (20:00)
[2020-08-06] MEDS ORDERED: ONDANSETRON 4 MG/2 ML INJ IV ONE (20:00)
[2020-08-06] MEDS ORDERED: HYDROmorphone 1 MG/1 ML INJ IV ONE ×3 (20:00→23:42)
[2020-08-06 20:07] LABS: Basophils # (Auto) 0.1 K/mm3 (0.0-0.1); Basophils % (Auto) 0.6 % (0.0-1.8); Eosinophils # (Auto) 0.2 K/mm3 (0.0-0.4); Eosinophils % (Auto) 1.3 % (0.0-4.3); Hemoglobin 14.5 gm/dl (10.1-14.3); Lymphocytes # (Auto) 2.1 K/mm3 (1.2-5.4); Lymphocytes % (Auto) 14.1 % (13.4-35.0); Monocytes # (Auto) 0.5 K/mm3 (0.0-0.8); Monocytes % (Auto) 3.5 % (0.0-7.3)
--- NOTE | 2020-08-06 20:07 | Emergency Department Report ---
ED Abdominal Pain HPI - General Chief Complaint: Abdominal Pain Stated Complaint: ABD PAIN/EMESIS PUI?: No Time Seen by Provider: 08/06/20 19:59 Source: patient Mode of arrival: Ambulatory Limitations: No Limitations - History of Present Illness Initial Comments: Patient is a 25-year-old female that presents emergency room with complaints of right upper quadrant abdominal pain. Patient states that her pain at 1 PM. Patient also complains of nausea vomiting that also started at 1 PM. Patient states that her pain and nausea vomiting are worsening. Patient states that the pain is a 10 out of 10. Patient states the pain is better with rest and worse with eating, vomiting and palpation. Patient denies fever and chills. Patient denies blood in her vomitus. Patient denies constipation. Patient denies blood in her stool. Patient denies chest pain or shortness of breath. Patient denies recent travel. Patient denies recent international travel. Patient denies exposure to the novel coronavirus. Patient denies sick contacts. Patient denies fever and chills. Patient denies cough. Patient denies diarrhea. Patient denies coming in contact with anybody with symptoms of the novel coronavirus. MD Complaint: abdominal pain -: Sudden Location: RUQ Radiation: none Migration to: no migration Severity: severe Severity scale (0 -10): 10 Quality: stabbing Consistency: constant Improves With: rest Worsens With: eating, vomiting, movement Associated Symptoms: nausea, vomiting. denies: diarrhea, fever, chills, constipation, dysuria, hematemesis, hematochezia, melena, hematuria, syncope - Related Data LMP (females 10-50): last week Previous Rx's Medication Instructions Recorded Last Taken Type Pantoprazole [Protonix] 40 mg PO QDAY #30 tablet 10/28/19 Unknown Rx Sucralfate [Carafate] 1 gm PO Q6HR #420 ml 10/28/19 Unknown Rx oxyCODONE /ACETAMINOPHEN [Percocet 1 tab PO Q6HR PRN #20 tablet 10/28/19 Unknown Rx 5/325] traMADoL [Ultram 50 MG tab] 50 mg PO Q4HR PRN #14 tablet 02/26/20 Unknown Rx Ondansetron [Zofran Odt] 4 mg PO Q8HR PRN #20 tab.rapdis 03/10/20 Unknown Rx Promethazine HCl [Phenergan SUPPOS] 25 mg RC Q8HR PRN #7 supp.rect 03/11/20 Unknown Rx Allergies Allergy/AdvReac Type Severity Reaction Status Date / Time No Known Allergies Allergy Verified 10/06/19 15:38 ED Review of Systems ROS: Stated complaint: ABD PAIN/EMESIS Other details as noted in HPI Constitutional: denies: chills, fever Eyes: denies: eye pain, eye discharge, vision change ENT: denies: ear pain, throat pain Respiratory: denies: cough, shortness of breath, wheezing Cardiovascular: denies: chest pain, palpitations Endocrine: no symptoms reported Gastrointestinal: as per HPI, abdominal pain, nausea, vomiting. denies: diarrhea Genitourinary: denies: urgency, dysuria, discharge Musculoskeletal: denies: back pain, joint swelling, arthralgia Skin: denies: rash, lesions Neurological: denies: headache, weakness, paresthesias Psychiatric: denies: anxiety, depression Hematological/Lymphatic: denies: easy bleeding, easy bruising ED Past Medical Hx - Past Medical History Previous Medical History?: Yes Hx Hypertension: No Hx Heart Attack/AMI: No Hx Congestive Heart Failure: No Hx Diabetes: No Hx Liver Disease: No Hx Seizures: No Hx Asthma: No Hx COPD: No Additional medical history: Ovarian Cysts 08/04, ulcers, PID - Surgical History Past Surgical History?: Yes Additional Surgical History: tonsillectomy, 2 ovarian cysts removed left side. - Family History Family history: no significant - Social History Smoking Status: Current Every Day Smoker Substance Use Type: None - Medications Home Medications: Home Medications Medication Instructions Recorded Confirmed Last Taken Type Pantoprazole [Protonix] 40 mg PO QDAY #30 tablet 10/28/19 08/07/20 Unknown Rx Sucralfate [Carafate] 1 gm PO Q6HR #420 ml 10/28/19 08/07/20 Unknown Rx oxyCODONE /ACETAMINOPHEN [Percocet 1 tab PO Q6HR PRN #20 tablet 10/28/19 08/07/20 Unknown Rx 5/325] traMADoL [Ultram 50 MG tab] 50 mg PO Q4HR PRN #14 tablet 02/26/20 08/07/20 Unknown Rx Ondansetron [Zofran Odt] 4 mg PO Q8HR PRN #20 tab.rapdis 03/10/20 08/07/20 Unknown Rx Promethazine HCl [Phenergan SUPPOS] 25 mg RC Q8HR PRN #7 supp.rect 03/11/20 08/07/20 Unknown Rx ED Physical Exam - General Limitations: No Limitations General appearance: alert, in no apparent distress - Head Head exam: Present: atraumatic, normocephalic - Eye Eye exam: Present: normal appearance - ENT ENT exam: Present: mucous membranes moist - Neck Neck exam: Present: normal inspection - Respiratory Respiratory exam: Present: normal lung sounds bilaterally. Absent: respiratory distress - Cardiovascular Cardiovascular Exam: Present: regular rate, normal rhythm. Absent: systolic murmur, diastolic murmur, rubs, gallop - GI/Abdominal GI/Abdominal exam: Present: soft, tenderness (Right upper quadrant tenderness), normal bowel sounds - Extremities Exam Extremities exam: Present: normal inspection - Back Exam Back exam: Present: normal inspection - Neurological Exam Neurological exam: Present: alert, oriented X3 - Psychiatric Psychiatric exam: Present: normal affect, normal mood - Skin Skin exam: Present: warm, dry, intact, normal color. Absent: rash ED Course Vital Signs 08/06/20 08/06/20 08/06/20 19:50 20:00 21:00 Temperature 98.2 F Pulse Rate 92 H 97 H 86 Respiratory 15 13 15 Rate Blood Pressure 147/119 Blood Pressure 147/109 [left arm] O2 Sat by Pulse 99 99 97 Oximetry 08/06/20 08/06/20 22:01 22:17 Temperature Pulse Rate 82 78 Respiratory 14 10 L Rate Blood Pressure 147/119 Blood Pressure 116/66 [left arm] O2 Sat by Pulse 97 98 Oximetry - Reevaluation(s) Reevaluation #1: Just prior to going to CT, the patient states she is allergic to dust. CT changed to without contrast CT. 08/06/20 21:04 Reevaluation #2: Patient still complaining of severe pain. Patient was given another milligram Dilaudid. 08/06/20 22:05 Reevaluation #3: The patient's ultrasound is done and checks as the gallbladder is clear but the patient was tender with the probe over the right upper quadrant. Patient is crying in pain and the patient was given another milligram of Dilaudid. 08/06/20 23:39 Reevaluation #4: I discussed all results with patient. I discussed plan of care with patient. Patient agrees with plan of care and admission. Patient to be admitted to the hospitalist service. 08/06/20 23:47 - Consultations Consultation #1: I discussed the case with Dr. Rosario, general surgery. Dr. Rosario wants patient admitted, n.p.o. now, IV antibiotics and he will see the patient in the morning. 08/06/20 23:42 Consultation #2: Hospitalist consulted for admission. Hospitalist to admit patient. 08/06/20 23:46 ED Medical Decision Making - Lab Data Result diagrams: 08/06/20 19:55 08/06/20 19:55 - Radiology Data Radiology results: report reviewed CT ABDOMEN AND PELVIS WITHOUT CONTRAST INDICATION / CLINICAL INFORMATION: MAIN. Right upper quadrant pain x2 days. Allergies to contrast. TECHNIQUE: Axial CT images were obtained through the abdomen and pelvis without IV contrast. All CT scans at this location are performed using CT dose reduction for [facility] by means of automated exposure control. COMPARISON: 03/10/2020 FINDINGS: LOWER CHEST: No significant abnormality. LIVER: No significant abnormality. GALLBLADDER: No significant abnormality. BILE DUCTS: No significant abnormality. PANCREAS: No significant abnormality. SPLEEN: No significant abnormality. ADRENALS: No significant abnormality. RIGHT KIDNEY / URETER: No significant abnormality. LEFT KIDNEY / URETER: No significant abnormality. STOMACH / SMALL BOWEL: No significant abnormality. COLON: Colonic diverticulosis without diverticulitis. APPENDIX: No significant abnormality. PERITONEUM: No free fluid. No free air. No fluid collection. LYMPH NODES: Scattered small lymph nodes are noted in the right lower quadrant abdomen, unchanged from prior exam. No evidence of lymphadenopathy. AORTA / ARTERIES: No significant abnormality. IVC / VEINS: No significant abnormality. URINARY BLADDER: No significant abnormality. REPRODUCTIVE ORGANS: No significant abnormality. Previously noted bilateral ovarian cysts are smaller since prior exam. ADDITIONAL FINDINGS: None. SKELETAL SYSTEM: No significant abnormality. No aggressive osseous lesions. IMPRESSION: 1. No acute infiltrate process of the abdomen or pelvis. 2. Bilateral simple ovarian cysts are significant smaller when compared to prior exam. Otherwise findings are not significantly changed. Please see above for full details. US abdomen limited INDICATION: ruq pain COMPARISON: None. FINDINGS: Pancreas: No significant abnormality identified in the visualized portions of the pancreas. Abdominal aorta: No significant abnormality. IVC: Normal. Liver: No significant abnormality. Gallbladder: No gallstones, gallbladder wall thickening, or pericholecystic fluid. Bile ducts: The common bile duct measures 2 mm. Additional findings: No significant additional findings. IMPRESSION: No significant sonographic abnormality. - Medical Decision Making Patient is a 25-year-old female who presents emergency room with complaint of abdominal pain, nausea, vomiting. Patient's pain is in her right upper quadrant. Patient pain is severe. Patient had labs done which were essentially unremarkable except for an elevated WBC. Patient had a CT scan ordered and a CT was done without contrast due to the patient's allergy of IV contrast. Patient CT scan of the abdomen was negative for acute findings. Due to the amount of pa in the patient, the patient had an ultrasound of the abdomen. Patient's ultrasound was negative however the anaesthetic technician states that she was tender over the right upper quadrant with the ultrasound probe over the gallbladder. Patient required multiple doses of Dilaudid and the patient remained in pain. Patient's pain is intractable. I discussed the case with Dr. Rosario, general surgery and he recommends admission and he will see the patient in the morning. Expected also wants the patient n.p.o., IV fluids and IV antibiotics. Patient admitted to the hospitalist service. Critical care time documented due to the multiple reassessments, prolonged time at the bedside, interpretation of diagnostics and labs and consultants. - Differential Diagnosis Cholecystitis, gallbladder dysfunction, biliary colic, abdominal pain Critical Care Time: Yes Critical care time in (mins) excluding proc time.: 35 Critical care attestation.: If time is entered above; I have spent that time in minutes in the direct care of this critically ill patient, excluding procedure time. Critical Care Time: 35 minutes ED Disposition Clinical Impression: Right upper quadrant pain, Intractable abdominal pain Elevated WBC count Qualifiers: Leukocytosis type: unspecified Qualified Code(s): D72.829 - Elevated white blood cell count, unspecified Disposition: OP ADMIT IP TO THIS HOSP Is pt being admited?: Yes Does the pt Need Aspirin: No Condition: Critical Time of Disposition: 23:54
[2020-08-06 20:23] LABS: Hematocrit 43.1 % (30.3-42.9); Mean Corpuscular Volume 94 fl (79-97); Red Blood Count 4.59 M/mm3 (3.65-5.03)
[2020-08-06 20:24] LABS: Mean Corpuscular HGB Conc 34 % (30-34); Platelet Count 331 K/mm3 (140-440); Red Cell Distribution Width 13.7 % (13.2-15.2)
[2020-08-06 20:29] LABS: Alanine Aminotransferase 22 units/L (7-56); Albumin 3.7 g/dL (3.9-5); Blood Urea Nitrogen 13 mg/dL (7-17); Calcium 9.1 mg/dL (8.4-10.2); Hemolysis Index 68
[2020-08-06 20:30] LABS: BUN/Creatinine Ratio 22
--- NOTE | 2020-08-06 21:32 | Cat Scan Report ---
CT ABDOMEN AND PELVIS WITHOUT CONTRAST INDICATION / CLINICAL INFORMATION: MAIN. Right upper quadrant pain x2 days. Allergies to contrast. TECHNIQUE: Axial CT images were obtained through the abdomen and pelvis without IV contrast. All CT scans at [facility] location are performed using CT dose reduction for [place] by means of automated exposure control. COMPARISON: 03/10/2020 FINDINGS: LOWER CHEST: No significant abnormality. LIVER: No significant abnormality. GALLBLADDER: No significant abnormality. BILE DUCTS: No significant abnormality. PANCREAS: No significant abnormality. SPLEEN: No significant abnormality. ADRENALS: No significant abnormality. RIGHT KIDNEY / URETER: No significant abnormality. LEFT KIDNEY / URETER: No significant abnormality. STOMACH / SMALL BOWEL: No significant abnormality. COLON: Colonic diverticulosis without diverticulitis. APPENDIX: No significant abnormality. PERITONEUM: No free fluid. No free air. No fluid collection. LYMPH NODES: Scattered small lymph nodes are noted in the right lower quadrant abdomen, unchanged fro m prior exam. No evidence of lymphadenopathy. AORTA / ARTERIES: No significant abnormality. IVC / VEINS: No significant abnormality. URINARY BLADDER: No significant abnormality. REPRODUCTIVE ORGANS: No significant abnormality. Previously noted bilateral ovarian cysts are smaller since prior exam. ADDITIONAL FINDINGS: None. SKELETAL SYSTEM: No significant abnormality. No aggressive osseous lesions. IMPRESSION: 1. No acute infiltrate process of the abdomen or pelvis. 2. Bilateral simple ovarian cysts are significant smaller when compared to prior exam. Otherwise find ings are not significantly changed. Please see above for full details. Signer Name: Harvey Garrison MD Signed: 08/06/2020 9:27 PM Workstation Name: [id number]
[2020-08-06 21:51] LABS: Amorphous Crystals,Urine Few; Bilirubin,Urine NEG (Negative); Blood,Urine NEG (Negative); Color,Urine Yellow (Yellow); Mucus,Urine FEW /HPF; Protein,Urine >500 mg/dL (Negative); Urobilinogen,Urine < 2.0 mg/dL (<2.0)
[2020-08-06] MEDS ORDERED: PIPERACIL/TAZOBACTA 4.5/NS 100 4.5 GM/100 ML VIAL IV ONE (23:44)
--- NOTE | 2020-08-06 23:50 | History and Physical Report ---
History of Present Illness Date of examination: 08/06/20 Date of admission: 08/06/2020 Chief complaint: Abdominal pain History of present illness: 25-year-old female presenting to the emergency room today complaining of abdominal pain. Abdominal pain is said to have started earlier this afternoon. Pain is more in the right upper abdomen. She has had associated nausea and vomiting. On a scale of 10 pain was about 10/10 in severity. Pain is worse upon eating an d when she is vomiting or gets better when she is resting. She denies any headaches or dizziness, she denies any chest pain or shortness of breath, she denies any coffee-ground emesis, she denies any melena. Patient denies any pneumaturia or dysuria. She indicates she has had some low-grade fever at home prior to arrival. Patient denies any sick contacts and no recent travel, denies any contact with anyone with COVID-19. Work-up in the emergency room today reveals a leukocytosis of 14.6. CT of the abdomen and ultrasound were unremarkable. General surgeon Dr. Rosario has been consulted by the ER physician. Recommendation is to make patient n.p.o. overnight and will be subsequently devan luated in the a.m. HIDA scan is also scheduled to be done. Past History Past Medical History: No medical history, GERD Past Surgical History: No surgical history Social history: no significant social history Family history: no significant family history Medications and Allergies Allergies Allergy/AdvReac Type Severity Reaction Status Date / Time No Known Allergies Allergy Verified 10/06/19 15:38 Home Medications Medication Instructions Recorded Confirmed Last Taken Type Pantoprazole [Protonix] 40 mg PO QDAY #30 tablet 10/28/19 08/07/20 Unknown Rx Sucralfate [Carafate] 1 gm PO Q6HR #420 ml 10/28/19 08/07/20 Unknown Rx oxyCODONE /ACETAMINOPHEN [Percocet 1 tab PO Q6HR PRN #20 tablet 10/28/19 08/07/20 Unknown Rx 5/325] traMADoL [Ultram 50 MG tab] 50 mg PO Q4HR PRN #14 tablet 02/26/20 08/07/20 Unknown Rx Ondansetron [Zofran Odt] 4 mg PO Q8HR PRN #20 tab.rapdis 03/10/20 08/07/20 Unknown Rx Promethazine HCl [Phenergan SUPPOS] 25 mg RC Q8HR PRN #7 supp.rect 03/11/20 08/07/20 Unknown Rx Active Meds: Active Medications Piperacillin Sod/Tazobactam Sod (Zosyn/Ns 4.5gm/100ml) 4.5 gm in 100 mls @ 200 mls/hr IV ONCE ONE; Protocol Stop: 08/07/20 00:13 Review of Systems Constitutional: fever, chills Ears, nose, mouth and throat: no nasal congestion, no sore throat Cardiovascular: no chest pain, no palpitations Respiratory: no cough, no shortness of breath Gastrointestinal: abdominal pain, nausea, vomiting, no constipation, no hematemesis, no BRBPR, no melena Genitourinary Female: no pelvic pain, no flank pain, no dysuria, no hematuria Musculoskeletal: no neck pain, no low back pain Integumentary: no rash, no pruritis Neurological: no headaches, no confusion Psychiatric: no anxiety, no depression Exam - Constitutional Vitals: Temp Pulse Resp BP Pulse Ox 98.2 F 78 10 L 116/66 98 08/06/20 19:50 08/06/20 22:17 08/06/20 22:17 08/06/20 22:17 08/06/20 22:17 General appearance: Present: no acute distress, well-nourished - EENT Eyes: Present: PERRL, EOM intact. Absent: scleral icterus ENT: hearing intact, clear oral mucosa, dentition normal - Neck Neck: Present: supple, normal ROM - Respiratory Respiratory effort: normal Respiratory: bilateral: CTA - Cardiovascular Rhythm: regular Heart Sounds: Present: S1 & S2. Absent: gallop, systolic murmur, diastolic murmur, rub, click - Extremities Extremities: no ischemia, pulses intact, pulses symmetrical, No edema, normal temperature, normal color, Full ROM Peripheral Pulses: within normal limits - Abdominal General gastrointestinal: Present: soft, tender (Right upper quadrant, Minimal guarding, no rebound tenderness.), non-distended, normal bowel sounds. Absent: mass - Integumentary Integumentary: Present: clear, warm, dry. Absent: rash - Musculoskeletal Musculoskeletal: strength equal bilaterally - Psychiatric Psychiatric: appropriate mood/affect, intact judgment & insight, memory intact, cooperative - Neurologic Neurologic: CNII-XII intact, no focal deficits, moves all extremities Results - Labs CBC & Chem 7: 08/06/20 19:55 08/06/20 19:55 Labs: Abnormal lab results 08/06/20 08/06/20 08/06/20 Range/Units 19:55 19:55 21:34 WBC 14.6 H (4.5-11.0) K/mm3 Hgb 14.5 H (10.1-14.3) gm/dl Hct 43.1 H (30.3-42.9) % Seg Neutrophils % 80.5 H (40.0-70.0) % Seg Neutrophils # 11.7 H (1.8-7.7) K/mm3 Sodium 135 L (137-145) mmol/L Albumin 3.7 L (3.9-5) g/dL Urine pH 9.0 H (5.0-7.0) Assessment and Plan - Patient Problems (1) Abdominal pain Current Visit: Yes Status: Acute Plan to address problem: Etiology is unclear. Patient has been made n.p.o. We will place patient on IV fluid and IV analgesic medication. HIDA scan is to be scheduled for today . We will await further evaluation by general surgeon. (2) Peptic ulcer disease Current Visit: No Status: Acute Plan to address problem: Patient placed on proton pump inhibitor. (3) DVT prophylaxis Current Visit: Yes Status: Acute Plan to address problem: Patient placed on sequential compression device. (4) Full code status Current Visit: Yes Status: Acute
[2020-08-06] MEDS ORDERED: ACETAMINOPHEN 325 MG TAB PO PRN (23:56)
[2020-08-07] MEDS ORDERED: SODIUM CHLORIDE 0.9% 1000 ML 1,000 ML ONE
[2020-08-07] MEDS: SODIUM CHLORIDE 0.9% 1000 ML 1,000 ML IV SCH ×3 (00:12→20:04)
--- NOTE | 2020-08-07 00:15 | Ultrasound Report ---
US abdomen limited INDICATION: ruq pain COMPARISON: None. FINDINGS: Pancreas: No significant abnormality identified in the visualized portions of the pancreas. Abdominal aorta: No significant abnormality. IVC: Normal. Liver: No significant abnormality. Gallbladder: No gallstones, gallbladder wall thickening, or pericholecystic fluid. Bile ducts: The common bile duct measures 2 mm. Additional findings: No significant additional findings. IMPRESSION: No significant sonographic abnormality. Signer Name: Wei Hernandez MD Signed: 08/07/2020 12:10 AM Workstation Name: [id number]
[2020-08-07] MEDS: MORPHINE 2 MG/1 ML INJ IV PRN ×4 (02:33→21:45)
[2020-08-07 05:22] LABS: Basophils % (Auto) 0.5 % (0.0-1.8); Eosinophils # (Auto) 0.2 K/mm3 (0.0-0.4); Eosinophils % (Auto) 2.4 % (0.0-4.3); Hematocrit 39.9 % (30.3-42.9); Hemoglobin 13.8 gm/dl (10.1-14.3); Lymphocytes % (Auto) 35.3 % (13.4-35.0); Mean Corpuscular HGB Conc 35 % (30-34); Mean Corpuscular Volume 94 fl (79-97); Monocytes # (Auto) 0.6 K/mm3 (0.0-0.8); Monocytes % (Auto) 6.7 % (0.0-7.3); Platelet Count 305 K/mm3 (140-440); Red Blood Count 4.23 M/mm3 (3.65-5.03); Red Cell Distribution Width 13.8 % (13.2-15.2)
[2020-08-07 05:26] LABS: INR 0.93 (0.87-1.13)
[2020-08-07 05:30] LABS: Blood Urea Nitrogen 10 mg/dL (7-17); Calcium 8.4 mg/dL (8.4-10.2); Hemolysis Index 7
[2020-08-07 05:33] LABS: BUN/Creatinine Ratio 17
[2020-08-07] MEDS: ONDANSETRON 4 MG/2 ML INJ IV PRN (05:38)
[2020-08-07] MEDS: PIPERACIL/TAZOBACTA 4.5/NS 100 4.5 GM/100 ML VIAL IV SCH ×3 (09:17→23:21)
[2020-08-07] MEDS: PANTOPRAZOLE 40 MG INJ IV SCH ×2 (09:17→21:44)
--- NOTE | 2020-08-07 13:47 | Progress Note ---
Assessment and Plan Assessment and plan: -- Abdominal pain Current Visit: Yes Status: Acute Plan to address problem: CT abdomen and pelvis abdominal ultrasound, negative for acute abnormalities Bilateral simple ovarian cysts smaller than previous exam However patient continues to have intermittent abdominal pain and is crying Surgery evaluation noted and appreciated Surgeon requested HIDA scan, continue supportive care --SIRS/without organ dysfunction Current Visit: No Status: Acute Plan to address problem: tachycardia, leukocytosis Empiric antibiotics --Peptic ulcer disease Current Visit: No Status: Acute Plan to address problem: Continue Protonix, supportive care. --Obesity; BMI 30.7 Patient needs weight reduction exercise as tolerated When medically stable --DVT prophylaxis Current Visit: Yes Status: Acute . Patient needs Plan to address problem: Patient placed on sequential compression device. -- Full code status Current Visit: Yes Status: Acute Closely monitor the patient and adjust management as needed Surgery evaluation noted and appreciated, Advised HIDA scan Follow clinically Brief history; 25-year-old female patient was admitted through emergency room with abdominal pain CT abdomen and pelvis , abdominal ultrasound no acute abnormality ,evaluated by surgery, advised HIDA scan. Follow clinically, if HIDA is negative and patient stable may discharge tomorrow History Interval history: I have seen and examined the patient at the bedside Patient's chart and medications reviewed Patient complains of severe abdominal pain Crying and sobbing loudly Vital signs noted Hospitalist Physical - Constitutional Vitals: Temp Pulse Resp BP Pulse Ox 98.8 F 75 18 129/90 98 08/07/20 11:50 08/07/20 11:50 08/07/20 11:50 08/07/20 11:50 08/07/20 11:50 General appearance: Present: no acute distress, well-nourished - EENT Eyes: Present: PERRL, EOM intact - Neck Neck: Present: supple, normal ROM - Respiratory Respiratory effort: normal Respiratory: bilateral: diminished, negative: rales, rhonchi, wheezing - Cardiovascular Rhythm: regular Heart Sounds: Present: S1 & S2 - Extremities Extremities: no ischemia, No edema - Abdominal General gastrointestinal: soft, non-tender, non-distended, normal bowel sounds - Integumentary Integumentary: Present: clear, warm - Psychiatric Psychiatric: appropriate mood/affect, cooperative - Neurologic Neurologic: CNII-XII intact, moves all extremities Results - Labs CBC & Chem 7: 08/07/20 04:54 08/07/20 04:54 Labs: Laboratory Last Values WBC 8.5 K/mm3 (4.5-11.0) 08/07/20 04:54 RBC 4.23 M/mm3 (3.65-5.03) 08/07/20 04:54 Hgb 13.8 gm/dl (10.1-14.3) 08/07/20 04:54 Hct 39.9 % (30.3-42.9) 08/07/20 04:54 MCV 94 fl (79-97) 08/07/20 04:54 MCH 33 pg (28-32) H 08/07/20 04:54 MCHC 35 % (30-34) H 08/07/20 04:54 RDW 13.8 % (13.2-15.2) 08/07/20 04:54 Plt Count 305 K/mm3 (140-440) 08/07/20 04:54 Lymph % (Auto) 35.3 % (13.4-35.0) H 08/07/20 04:54 [place] % (Auto) 6.7 % (0.0-7.3) 08/07/20 04:54 Eos % (Auto) 2.4 % (0.0-4.3) 08/07/20 04:54 Baso % (Auto) 0.5 % (0.0-1.8) 08/07/20 04:54 Lymph # (Auto) 3.0 K/mm3 (1.2-5.4) 08/07/20 04:54 [place] # (Auto) 0.6 K/mm3 (0.0-0.8) 08/07/20 04:54 Eos # (Auto) 0.2 K/mm3 (0.0-0.4) 08/07/20 04:54 Baso # (Auto) 0.0 K/mm3 (0.0-0.1) 08/07/20 04:54 Seg Neutrophils % 55.1 % (40.0-70.0) 08/07/20 04:54 Seg Neutrophils # 4.7 K/mm3 (1.8-7.7) 08/07/20 04:54 PT 12.4 Sec. (12.2-14.9) 08/07/20 04:54 INR 0.93 (0.87-1.13) 08/07/20 04:54 Sodium 141 mmol/L (137-145) 08/07/20 04:54 Potassium 4.4 mmol/L (3.6-5.0) 08/07/20 04:54 Chloride 108.2 mmol/L (98-107) H 08/07/20 04:54 Carbon Dioxide 24 mmol/L (22-30) 08/07/20 04:54 Anion Gap 13 mmol/L 08/07/20 04:54 BUN 10 mg/dL (7-17) 08/07/20 04:54 Creatinine 0.6 mg/dL (0.6-1.2) 08/07/20 04:54 Estimated GFR > 60 ml/min 08/07/20 04:54 BUN/Creatinine Ratio 17 % 08/07/20 04:54 Glucose 84 mg/dL (65-100) 08/07/20 04:54 Calcium 8.4 mg/dL (8.4-10.2) 08/07/20 04:54 Total Bilirubin < 0.20 mg/dL (0.1-1.2) 08/06/20 19:55 AST 20 units/L (5-40) 08/06/20 19:55 ALT 22 units/L (7-56) 08/06/20 19:55 Alkaline Phosphatase 73 units/L (35-129) 08/06/20 19:55 Total Protein 6.4 g/dL (6.3-8.2) 08/06/20 19:55 Albumin 3.7 g/dL (3.9-5) L 08/06/20 19:55 Albumin/Globulin Ratio 1.4 % 08/06/20 19:55 Lipase 32 units/L (13-60) 08/06/20 19:55 HCG, Qual Negative (Negative) 08/06/20 19:55 Urine Color Yellow (Yellow) 08/06/20 21:34 Urine Turbidity Cloudy (Clear) 08/06/20 21:34 Urine pH 9.0 (5.0-7.0) H 08/06/20 21:34 Ur Specific [place] 1.016 (1.003-1.030) 08/06/20 21:34 Urine Protein >500 mg/dL (Negative) 03/17/21 21:34 Urine Glucose (UA) Neg mg/dL (Negative) 08/06/20 21:34 Urine Ketones Neg mg/dL (Negative) 08/06/20 21:34 Urine Blood Neg (Negative) 08/06/20 21:34 Urine Nitrite Neg (Negative) 08/06/20 21:34 Urine Bilirubin Neg (Negative) 08/06/20 21:34 Urine Urobilinogen < 2.0 mg/dL (<2.0) 08/06/20 21:34 Ur Leukocyte Esterase Neg (Negative) 08/06/20 21:34 Urine WBC (Auto) 1.0 /HPF (0.0-6.0) 08/06/20 21:34 Urine RBC (Auto) 8.0 /HPF (0.0-6.0) 08/06/20 21:34 U Epithel Cells (Auto) 10.0 /HPF (0-13.0) 08/06/20 21:34 Amorphous Crystals Few 08/06/20 21:34 Urine Mucus Few /HPF 08/06/20 21:34 Active Medications - Current Medications Current Medications: Generic Name Dose Route Start Last Admin Trade Name Freq PRN Reason Stop Dose Admin Acetaminophen 650 mg 08/06/20 23:56 Acetaminophen 325 Mg Tab PO Q4H PRN Pain MILD(1-3)/Fever >100.5/COSTELLO Sodium Chloride 1,000 mls @ 125 mls/hr 08/06/20 23:45 08/07/20 09:33 Nacl 0.9% 1000 Ml IV 125 mls/hr DIRECT ALINA Administration Piperacillin Sod/Tazobactam Sod 4.5 gm in 100 mls @ 200 mls/hr 08/07/20 08:00 08/07/20 09:17 Zosyn/Ns 4.5gm/100ml IV 200 mls/hr Q8H ALINA Administration Protocol Morphine Sulfate 2 mg 08/06/20 23:56 08/07/20 09:17 Morphine 2 Mg/1 Ml Inj IV 2 mg Q4H PRN Administration Pain, Moderate (4-6) Ondansetron HCl 4 mg 08/06/20 23:56 08/07/20 05:38 Ondansetron 4 Mg/2 Ml Inj IV 4 mg Q8H PRN Administration Nausea And Vomiting Pantoprazole Sodium 40 mg 08/07/20 10:00 08/07/20 09:17 Pantoprazole 40 Mg Inj IV 40 mg BID ALNIA Administration Sodium Chloride 10 ml 08/07/20 10:00 08/07/20 12:08 Sodium Chloride 0.9% 10 Ml Flush Syringe IV Not Given BID ALINA Sodium Chloride 10 ml 08/06/20 23:56 Sodium Chloride 0.9% 10 Ml Flush Syringe IV PRN PRN LINE FLUSH
--- NOTE | 2020-08-07 14:16 | Consultation ---
History of Present Illness Consult date: 08/07/20 Reason for consult: abdominal pain - History of present illness History of present illness: 25 yo female with 24 hr h/o RUQ pain associated with nausea & vomiting without hematemesis, melena or urinary complaints. Pain is exacerbated by eating. Past History Past Medical History: No medical history, GERD Past Surgical History: No surgical history Social history: no significant social history Family history: no significant family history Medications and Allergies Allergies Allergy/AdvReac Type Severity Reaction Status Date / Time No Known Allergies Allergy Verified 10/06/19 15:38 Home Medications Medication Instructions Recorded Confirmed Last Taken Type Pantoprazole [Protonix] 40 mg PO QDAY #30 tablet 10/28/19 08/07/20 Unknown Rx Sucralfate [Carafate] 1 gm PO Q6HR #420 ml 10/28/19 08/07/20 Unknown Rx oxyCODONE /ACETAMINOPHEN [Percocet 1 tab PO Q6HR PRN #20 tablet 10/28/19 08/07/20 Unknown Rx 5/325] traMADoL [Ultram 50 MG tab] 50 mg PO Q4HR PRN #14 tablet 02/26/20 08/07/20 Unknown Rx Ondansetron [Zofran Odt] 4 mg PO Q8HR PRN #20 tab.rapdis 03/10/20 08/07/20 Unknown Rx Promethazine HCl [Phenergan SUPPOS] 25 mg RC Q8HR PRN #7 supp.rect 03/11/20 08/07/20 Unknown Rx Active Meds: Active Medications Acetaminophen (Acetaminophen 325 Mg Tab) 650 mg PO Q4H PRN PRN Reason: Pain MILD(1-3)/Fever >100.5/COSTELLO Sodium Chloride (Nacl 0.9% 1000 Ml) 1,000 mls @ 125 mls/hr IV DIRECT ALINA Last Admin: 08/07/20 09:33 Dose: 125 mls/hr Documented by: Piperacillin Sod/Tazobactam Sod (Zosyn/Ns 4.5gm/100ml) 4.5 gm in 100 mls @ 200 mls/hr IV Q8H ALINA; Protocol Last Admin: 08/07/20 09:17 Dose: 200 mls/hr Documented by: Morphine Sulfate (Morphine 2 Mg/1 Ml Inj) 2 mg IV Q4H PRN PRN Reason: Pain, Moderate (4-6) Last Admin: 08/07/20 09:17 Dose: 2 mg Documented by: Ondansetron HCl (Ondansetron 4 Mg/2 Ml Inj) 4 mg IV Q8H PRN PRN Reason: Nausea And Vomiting Last Admin: 08/07/20 05:38 Dose: 4 mg Documented by: Pantoprazole Sodium (Pantoprazole 40 Mg Inj) 40 mg IV BID [facility] Last Admin: 08/07/20 09:17 Dose: 40 mg Documented by: Sodium Chloride (Sodium Chloride 0.9% 10 Ml Flush Syringe) 10 ml IV BID [facility] Last Admin: 08/07/20 12:08 Dose: Not Given Documented by: Sodium Chloride (Sodium Chloride 0.9% 10 Ml Flush Syringe) 10 ml IV PRN PRN PRN Reason: LINE FLUSH Review of Systems All systems: negative Exam Vital Signs Temp Pulse Resp BP Pulse Ox 98.2 F 92 H 15 147/109 99 08/06/20 19:50 08/06/20 19:50 08/06/20 19:50 08/06/20 19:50 08/06/20 19:50 - General physical appearance Positive: well developed, well nourished, no distress - Eyes Positive: PERRL, normal occular movement - ENT Positive: normal pinna, normal nares, normal mucosa, no hearing loss, no congestion - Neck Positive: no masses, no bruits, trachea midline, no venous distension - Respiratory Positive: normal expansion, normal respiratory effort, clear to auscultation - Cardiovascular Rhythm: regular Heart Sounds: Present: S1 & S2. Absent: rub, click - Extremities Extremities: no ischemia, pulses symmetrical, No edema - Breasts Breasts: normal, no mass, no skin changes - Abdomen Abdomen: Present: soft, bowel sounds normal, other (Minimally tender in the RUQ without rebound or guarding.). Absent: distended Hernia: none - Genitourinary Male Genitourinary: normal Female Genitourinary: normal - Integumentary no rash, no growths, no abnormal pigmentation - Neurologic Neurologic: alert and oriented to time, place and person, motor strength and sensation are grossly intact - Musculoskeletal normal gait, normal posture - Psychiatric Psychiatric: appropriate mood/affect, intact judgment & insight Results - Labs 08/07/20 04:54 08/07/20 04:54 Abnormal lab results 08/06/20 08/06/20 08/06/20 Range/Units 19:55 19:55 21:34 WBC 14.6 H (4.5-11.0) K/mm3 Hgb 14.5 H (10.1-14.3) gm/dl Hct 43.1 H (30.3-42.9) % MCH (28-32) pg MCHC (30-34) % Lymph % (Auto) (13.4-35.0) % Seg Neutrophils % 80.5 H (40.0-70.0) % Seg Neutrophils # 11.7 H (1.8-7.7) K/mm3 Sodium 135 L (137-145) mmol/L Chloride (98-107) mmol/L Albumin 3.7 L (3.9-5) g/dL Urine pH 9.0 H (5.0-7.0) 08/07/20 08/07/20 Range/Units 04:54 04:54 WBC (4.5-11.0) K/mm3 Hgb (10.1-14.3) gm/dl Hct (30.3-42.9) % MCH 33 H (28-32) pg MCHC 35 H (30-34) % Lymph % (Auto) 35.3 H (13.4-35.0) % Seg Neutrophils % (40.0-70.0) % Seg Neutrophils # (1.8-7.7) K/mm3 Sodium (137-145) mmol/L Chloride 108.2 H (98-107) mmol/L Albumin (3.9-5) g/dL Urine pH (5.0-7.0) Diabetes panel 08/06/20 08/07/20 Range/Units 19:55 04:54 Sodium 135 L 141 (137-145) mmol/L Potassium 4.2 4.4 (3.6-5.0) mmol/L Chloride 99.4 108.2 H (98-107) mmol/L Carbon Dioxide 23 24 (22-30) mmol/L BUN 13 10 (7-17) mg/dL Creatinine 0.6 0.6 (0.6-1.2) mg/dL Glucose 100 84 (65-100) mg/dL Calcium 9.1 8.4 (8.4-10.2) mg/dL AST 20 (5-40) units/L ALT 22 (7-56) units/L Alkaline Phosphatase 73 (35-129) units/L Total Protein 6.4 (6.3-8.2) g/dL Albumin 3.7 L (3.9-5) g/dL Calcium panel 08/06/20 08/07/20 Range/Units 19:55 04:54 Calcium 9.1 8.4 (8.4-10.2) mg/dL Albumin 3.7 L (3.9-5) g/dL Pituitary panel 08/06/20 08/07/20 Range/Units 19:55 04:54 Sodium 135 L 141 (137-145) mmol/L Potassium 4.2 4.4 (3.6-5.0) mmol/L Chloride 99.4 108.2 H (98-107) mmol/L Carbon Dioxide 23 24 (22-30) mmol/L BUN 13 10 (7-17) mg/dL Creatinine 0.6 0.6 (0.6-1.2) mg/dL Glucose 100 84 (65-100) mg/dL Calcium 9.1 8.4 (8.4-10.2) mg/dL Adrenal panel 08/06/20 08/07/20 Range/Units 19:55 04:54 Sodium 135 L 141 (137-145) mmol/L Potassium 4.2 4.4 (3.6-5.0) mmol/L Chloride 99.4 108.2 H (98-107) mmol/L Carbon Dioxide 23 24 (22-30) mmol/L BUN 13 10 (7-17) mg/dL Creatinine 0.6 0.6 (0.6-1.2) mg/dL Glucose 100 84 (65-100) mg/dL Calcium 9.1 8.4 (8.4-10.2) mg/dL Total Bilirubin < 0.20 (0.1-1.2) mg/dL AST 20 (5-40) units/L ALT 22 (7-56) units/L Alkaline Phosphatase 73 (35-129) units/L Total Protein 6.4 (6.3-8.2) g/dL Albumin 3.7 L (3.9-5) g/dL - Imaging CT scan - abdomen: report reviewed CT scan - pelvis: report reviewed US - abdomen: report reviewed Additional studies: LFT unremarkable. UA with 8 RBC/HPF. Assessment and Plan - Patient Problems (1) Right upper quadrant pain Current Visit: Yes Status: Acute Plan to address problem: 1) Hida with CCK 2) NPO 3) PPI
[2020-08-08] MEDS ORDERED: SINCALIDE 5 MCG VIAL IV ONE ×2 (09:14→09:35)
[2020-08-08] MEDS: PIPERACIL/TAZOBACTA 4.5/NS 100 4.5 GM/100 ML VIAL IV SCH ×2 (09:56→17:21)
[2020-08-08] MEDS ORDERED: WATER FOR INJ Sterile (PF) 10 ML IV SCH (10:00)
[2020-08-08] MEDS: MORPHINE 2 MG/1 ML INJ IV PRN ×3 (10:20→20:20)
[2020-08-08] MEDS: PANTOPRAZOLE 40 MG INJ IV SCH ×2 (10:21→22:00)
[2020-08-08] MEDS ORDERED: HYDROmorphone 1 MG/1 ML INJ IV SCH (10:30)
--- NOTE | 2020-08-08 10:33 | Nuclear Medicine Report ---
NUCLEAR MEDICINE HEPATOBILIARY SCAN INDICATION: RUQ pain. TECHNIQUE: Radiotracer: Tc-99m mebrofenin (by IV): 5.5 mCi. Gallbladder Stimulant: 1.7 mcg CCK IV. FINDINGS: Hepatic activity: Normal. Biliary activity: Normal. Common bile duct activity at 10 minutes. Gallbladder activity: Normal at 75 minutes. Small bowel activity: Normal at 20 minutes. Gallbladder ejection fraction was 26 % (greater than 35% is considered normal). IMPRESSION: 1. No biliary obstruction. 2. Abnormal low gallbladder ejection fraction. Signer Name: Tree Vanegas MD Signed: 08/08/2020 10:28 AM Workstation Name: [id number]
[2020-08-08] MEDS: ONDANSETRON 4 MG/2 ML INJ IV PRN (14:47)
--- NOTE | 2020-08-08 15:42 | Progress Note ---
Assessment and Plan Assessment and Plan - Patient Problems (1) Abdominal pain Current Visit: Yes Status: Acute Plan to address problem: Hida scan negative Will start clears If no surgery will discharge tomorrow (2) Peptic ulcer disease Current Visit: No Status: Acute Plan to address problem: Patient placed on proton pump inhibitor. (3) DVT prophylaxis Current Visit: Yes Status: Acute Plan to address problem: Patient placed on sequential compression device. Subjective Date of service: 08/08/20 Principal diagnosis: Acute abdominal pain Interval history: less pain Had HIDA scan which was negativee Objective - Constitutional Vitals: Vital Signs - 12hr 08/08/20 04:18 Temperature 98.3 F Pulse Rate 66 Respiratory 18 Rate Blood Pressure 136/72 [left arm] O2 Sat by Pulse 95 Oximetry General appearance: Present: no acute distress, well-nourished - EENT Eyes: PERRL, EOM intact ENT: hearing intact, clear oral mucosa Ears: bilateral: normal - Neck Neck: supple, normal ROM - Respiratory Respiratory effort: normal Respiratory: bilateral: CTA - Breasts Breasts: normal - Cardiovascular Heart rate: 78 Rhythm: regular Heart Sounds: Present: S1 & S2. Absent: gallop, rub Extremities: pulses intact, No edema, normal color, Full ROM - Gastrointestinal General gastrointestinal: Present: soft, non-tender, non-distended, normal bowel sounds - Genitourinary Female genitourinary: normal - Integumentary Integumentary: clear, warm, dry - Musculoskeletal Musculoskeletal: 1, strength equal bilaterally - Neurologic Neurologic: moves all extremities - Psychiatric Psychiatric: memory intact, appropriate mood/affect, intact judgment & insight - Labs CBC & Chem 7: 08/07/20 04:54 08/07/20 04:54
--- NOTE | 2020-08-08 22:10 | Progress Note ---
Assessment and Plan - Patient Problems (1) Right upper quadrant pain Current Visit: Yes Status: Acute (2) Biliary dyskinesia Current Visit: Yes Status: Acute Plan to address problem: 1) Low fat diet 2) Pt can be discharged and can f/u in my office for scheduling of elective lap beatris. Subjective Date of service: 08/08/20 Patient Reports: Positive: no new complaints, feels better, pain is less Objective Vital Signs - 12hr 08/08/20 08/08/20 14:47 19:42 Temperature 97.8 F Pulse Rate 80 75 Respiratory 16 Rate Blood Pressure 130/72 Blood Pressure 125/75 [left arm] O2 Sat by Pulse 100 100 Oximetry - Abdomen [id number] 4, [id number]_[id number] 6, [id number] 8 Hernia: none - Labs 08/07/20 04:54 08/07/20 04:54 - Imaging Additional Studies: Hida with EF of 26%.
[2020-08-09 04:43] LABS: Basophils % (Auto) 0.7 % (0.0-1.8); Eosinophils # (Auto) 0.2 K/mm3 (0.0-0.4); Eosinophils % (Auto) 3.5 % (0.0-4.3); Hematocrit 40.3 % (30.3-42.9); Hemoglobin 13.8 gm/dl (10.1-14.3); Lymphocytes # (Auto) 1.9 K/mm3 (1.2-5.4); Lymphocytes % (Auto) 27.9 % (13.4-35.0); Mean Corpuscular HGB Conc 34 % (30-34); Mean Corpuscular Volume 94 fl (79-97); Monocytes # (Auto) 0.4 K/mm3 (0.0-0.8); Monocytes % (Auto) 6.6 % (0.0-7.3); Platelet Count 292 K/mm3 (140-440); Red Blood Count 4.29 M/mm3 (3.65-5.03); Red Cell Distribution Width 13.6 % (13.2-15.2)
[2020-08-09 05:04] LABS: Alanine Aminotransferase 14 units/L (7-56); Albumin 3.5 g/dL (3.9-5); Blood Urea Nitrogen 5 mg/dL (7-17); Calcium 8.7 mg/dL (8.4-10.2); Hemolysis Index 3
[2020-08-09 05:06] LABS: BUN/Creatinine Ratio 8
[2020-08-09 07:10] VITALS: BP 114/64
[2020-08-09] MEDS: MORPHINE 2 MG/1 ML INJ IV PRN (07:20)
[2020-08-09] MEDS: PIPERACIL/TAZOBACTA 4.5/NS 100 4.5 GM/100 ML VIAL IV SCH ×2 (09:31)
[2020-08-09] MEDS: PANTOPRAZOLE 40 MG INJ IV SCH (09:31)
--- NOTE | 2020-08-09 12:20 | Discharge Summary ---
Providers - Providers Date of Admission: 08/07/20 18:33 Date of discharge: 08/09/20 Attending physician: AUDRA ESCOTO 08/06/20 23:46 Consult to Physician [CONS] Routine Comment: Dr. Villa spoke with Dr. Shields @ [phone] Consulting Provider: SARAHI SHIELDS Physician Instructions: Reason For Exam: abd pain Primary care physician: APPLICATIONS ADMINISTRATOR Hospitalization Condition: Critical Hospital course: 25-year-old female presenting to the emergency room today complaining of abdominal pain. Abdominal pain is said to have started earlier this afternoon. Pain is more in the right upper abdomen. She has had associated nausea and vomiting. On a scale of 10 pain was about 10/10 in severity. Pain is worse upon eating and when she is vomiting or gets better when she is resting. She denies any headaches or dizziness, she denies any chest pain or shortness of breath, she denies any coffee-ground emesis, she denies any melena. Patient denies any pneumaturia or dysuria. She indicates she has had some low-grade fever at home prior to arrival. Patient denies any sick contacts and no recent travel, denies any contact with anyone with COVID-19. Work-up in the emergency room today reveals a leukocytosis of 14.6. CT of the abdomen and ultrasound were unremarkable. General surgeon Dr. Shields has been consulted by the ER physician. Recommendation is to make patient n.p.o. overnight and will be subsequently evaluated in the a.m. HIDA scan is normal Abdominal pain better A/p -- Abdominal pain Current Visit: Yes Status: Acute Plan to address problem: CT abdomen and pelvis abdominal ultrasound, negative for acute abnormalities Bilateral simple ovarian cysts smaller than previous exam However patient continues to have intermittent abdominal pain and is crying Surgery evaluation noted and appreciated Surgeon requested HIDA scan, continue supportive care --SIRS/without organ dysfunction Current Visit: No Status: Acute Plan to address problem: tachycardia, leukocytosis Empiric antibiotics --Peptic ulcer disease Current Visit: No Status: Acute Plan to address problem: Continue Protonix, supportive care. --Obesity; BMI 30.7 Patient needs weight reduction exercise as tolerated When medically stable Referral to Dr Raya --DVT prophylaxis Current Visit: Yes Status: Acute . Patient needs Plan to address problem: Patient placed on sequential compression device. Subjective Date of service: 08/08/20 Principal diagnosis: Acute abdominal pain Interval history: less pain Had HIDA scan which was negativee Disposition: DC-01 TO HOME OR SELFCARE Final Discharge Diagnosis (Prints w/discharge instructions): SIRS. Acute BDOMINL PAIN - Discharge Diagnoses (1) Intractable abdominal pain Status: Acute (2) Peptic ulcer disease Status: Acute (3) DVT prophylaxis Status: Acute Core Measure Documentation - Palliative Care Palliative Care/ Comfort Measures: Not Applicable - Core Measures Any of the following diagnoses?: none Exam - Constitutional Vitals: Temp Pulse Resp BP Pulse Ox 98.1 F 62 18 114/64 99 08/09/20 07:09 08/09/20 07:09 08/09/20 07:20 08/09/20 07:09 08/09/20 07:09 General appearance: Present: no acute distress, well-nourished - EENT Eyes: Present: PERRL ENT: hearing intact, clear oral mucosa - Neck Neck: Present: supple, normal ROM - Respiratory Respiratory effort: normal Respiratory: bilateral: CTA - Cardiovascular Heart rate: 78 Rhythm: regular Heart Sounds: Present: S1 & S2. Absent: rub, click - Extremities Extremities: pulses symmetrical, No edema Peripheral Pulses: within normal limits - Abdominal General gastrointestinal: Present: soft, non-tender, non-distended, normal bowel sounds Female genitourinary: Present: normal - Integumentary Integumentary: Present: clear, warm, dry - Musculoskeletal Musculoskeletal: gait normal, strength equal bilaterally - Psychiatric Psychiatric: appropriate mood/affect, intact judgment & insight - Neurologic Neurologic: CNII-XII intact, moves all extremities - Allied Health Allied health notes reviewed: nursing, case management Plan Activity: no restrictions Diet: regular Follow up with: CHARLEE LANDIN MD [Primary Care Provider] - 7 Days SARAHI SHIELDS MD [Staff Physician] - 7 Days
== END 2020-08-09 14:20 | disposition home or self-care (01) | DRG 445 ==
LOC: ED 19:46 → 3A 23:46 → 3B-SURG 08-07 04:18 → OBSVTOIN 08-07 18:33
PROVIDERS: ADMIT Internal Medicine Geriatric Medicine; ATTEND Internal Medicine
DX: K82.8 Other specified diseases of gallbladder (principal); R65.10 Systemic inflammatory response syndrome (SIRS) of non-infectious origin without acute organ dysfunction; K27.9 Peptic ulcer, site unspecified, unspecified as acute or chronic, without hemorrhage or perforation; F17.200 Nicotine dependence, unspecified, uncomplicated; D72.829 Elevated white blood cell count, unspecified; K21.9 Gastro-esophageal reflux disease without esophagitis; E66.9 Obesity, unspecified; Z79.899 Other long term (current) drug therapy; Z79.891 Long term (current) use of opiate analgesic; Z79.01 Long term (current) use of anticoagulants; Z68.30 Body mass index [BMI] 30.0-30.9, adult
CPT/HCPCS: 36415; 74176; 76705; 78227; 80048; 80053; 81001; 83690; 84703; 85025; 85610; 96374; 96375; G0378; A9537; C9113; J1170; J2270; J2405; J2543; J2805; J7030

== ENCOUNTER 2020-08-13 20:19 | Emergency (ER) | payer SELFPAY ==
--- NOTE | 2020-08-13 21:28 | Emergency Department Report ---
ED Back Pain/Injury HPI - General Chief Complaint: Back Pain/Injury Stated Complaint: ABD PAIN/RECENTLY DISCHARGED Time Seen by Provider: 08/13/20 21:11 Source: patient Limitations: No Limitations - History of Present Illness Initial Comments: 25-year-old female presents to the hospital complaining of a left lower back pain with radiation down left leg x1 day. Patient has had back pain x2 days with discomfort with urination. She was seen this morning at and diagnosed with UTI. Patient states she received "Haldol" through the IV while at today. After going home she had worsening left-sided pain with radiation down the left leg and therefore came to the hospital here for evaluation. Patient was recently admitted here earlier this month for intractable right upper quadrant pain. At that time CT abdomen pelvis, ultrasound, and HIDA scan were unremarkable and she was subsequently discharged. Patient has previous visits to the hospital for pain related complaints in which she has required multiple doses of narcotics. She states she is currently prescribed tramadol for pain and denies history of pain management. No complaints of nausea, vomiting, or fever. Patient denies of urine or bladder incontinence. - Related Data Previous Rx's Medication Instructions Recorded Last Taken Type Pantoprazole [Protonix] 40 mg PO QDAY #30 tablet 10/28/19 Unknown Rx Sucralfate [Carafate] 1 gm PO Q6HR #420 ml 10/28/19 Unknown Rx oxyCODONE /ACETAMINOPHEN [Percocet 1 tab PO Q6HR PRN #20 tablet 10/28/19 Unknown Rx 5/325] traMADoL [Ultram 50 MG tab] 50 mg PO Q4HR PRN #14 tablet 02/26/20 Unknown Rx Ondansetron [Zofran Odt] 4 mg PO Q8HR PRN #20 tab.rapdis 03/10/20 Unknown Rx Promethazine HCl [Phenergan SUPPOS] 25 mg RC Q8HR PRN #7 supp.rect 03/11/20 Unknown Rx Pantoprazole [Protonix] 40 mg PO QDAY 30 Days #30 tablet 08/09/20 Unknown Rx Cyclobenzaprine [Flexeril] 10 mg PO TID PRN #20 tablet 08/14/20 Unknown Rx Ibuprofen [Motrin] 800 mg PO Q8HR PRN #20 tablet 08/14/20 Unknown Rx Allergies Allergy/AdvReac Type Severity Reaction Status Date / Time Iv contrast AdvReac Shortness Uncoded 08/13/20 20:37 of Breath ED Review of Systems ROS: Stated complaint: ABD PAIN/RECENTLY DISCHARGED Other details as noted in HPI Comment: All other systems reviewed and negative ED Past Medical Hx - Past Medical History Previous Medical History?: Yes Hx Hypertension: No Hx Heart Attack/AMI: No Hx Congestive Heart Failure: No Hx Diabetes: No Hx Liver Disease: No Hx Seizures: No Hx Asthma: No Hx COPD: No Additional medical history: Ovarian Cysts 08/04, ulcers, PID - Surgical History Past Surgical History?: Yes Additional Surgical History: tonsillectomy, 2 ovarian cysts removed left side. - Social History Smoking Status: Never Smoker Substance Use Type: Marijuana - Medications Home Medications: Home Medications Medication Instructions Recorded Confirmed Last Taken Type Pantoprazole [Protonix] 40 mg PO QDAY #30 tablet 10/28/19 08/07/20 Unknown Rx Sucralfate [Carafate] 1 gm PO Q6HR #420 ml 10/28/19 08/07/20 Unknown Rx oxyCODONE /ACETAMINOPHEN [Percocet 1 tab PO Q6HR PRN #20 tablet 10/28/19 08/07/20 Unknown Rx 5/325] traMADoL [Ultram 50 MG tab] 50 mg PO Q4HR PRN #14 tablet 02/26/20 08/07/20 Unknown Rx Ondansetron [Zofran Odt] 4 mg PO Q8HR PRN #20 tab.rapdis 03/10/20 08/07/20 U nknown Rx Promethazine HCl [Phenergan SUPPOS] 25 mg RC Q8HR PRN #7 supp.rect 03/11/20 08/07/20 Unknown Rx Pantoprazole [Protonix] 40 mg PO QDAY 30 Days #30 tablet 08/09/20 Unknown Rx Cyclobenzaprine [Flexeril] 10 mg PO TID PRN #20 tablet 08/14/20 Unknown Rx Ibuprofen [Motrin] 800 mg PO Q8HR PRN #20 tablet 08/14/20 Unknown Rx ED Physical Exam - General Limitations: No Limitations - Other Other exam information: General: No acute distress Head: Atraumatic Eyes: normal appearance ENT: Moist mucous membranes Neck: Normal appearance, no midline tenderness Chest: Clear to auscultation bilaterally CV: Regular rate and rhythm Abdomen: Soft, normal bowel sounds, nontender, nondistended, no rebound or guarding Rectal: Good rectal tone. No perineal anesthesia Back: Normal inspection, left paraspinal muscle tenderness, mild left buttock tenderness. Extremity: Normal inspection, full range of motion Neuro: Alert O x 3, no facial asymmetry, speech clear, patient complains of mild numbness to left leg with palpation and has mild decrease in movement secondary to. 5/5 right lower extremity strength with good sensation Psych: Appropriate behavior Skin: No rash ED Course Vital Signs 08/13/20 08/13/20 08/13/20 20:37 21:00 21:30 Temperature 98.3 F Pulse Rate 92 H 74 80 Respiratory 20 15 15 Rate Blood Pressure 108/91 141/88 113/75 O2 Sat by Pulse 97 97 100 Oximetry 08/13/20 08/13/20 22:00 22:30 Temperature Pulse Rate 73 76 Respiratory 12 17 Rate Blood Pressure 116/68 109/62 O2 Sat by Pulse 99 98 Oximetry ED Medical Decision Making - Lab Data Result diagrams: 08/13/20 21:49 08/13/20 21:49 Lab Results 08/13/20 08/13/20 08/13/20 Range/Units 21:49 21:49 21:49 WBC 7.8 (4.5-11.0) K/mm3 RBC 4.25 (3.65-5.03) M/mm3 Hgb 13.4 (10.1-14.3) gm/dl Hct 39.7 (30.3-42.9) % MCV 94 (79-97) fl MCH 32 (28-32) pg MCHC 34 (30-34) % RDW 14.0 (13.2-15.2) % Plt Count 250 (140-440) K/mm3 Lymph % (Auto) 24.4 (13.4-35.0) % [place] % (Auto) 7.0 (0.0-7.3) % Eos % (Auto) 3.1 (0.0-4.3) % Baso % (Auto) 0.6 (0.0-1.8) % Lymph # (Auto) 1.9 (1.2-5.4) K/mm3 [place] # (Auto) 0.5 (0.0-0.8) K/mm3 Eos # (Auto) 0.2 (0.0-0.4) K/mm3 Baso # (Auto) 0.0 (0.0-0.1) K/mm3 Seg Neutrophils % 64.9 (40.0-70.0) % Seg Neutrophils # 5.1 (1.8-7.7) K/mm3 Sodium 136 L (137-145) mmol/L Potassium 3.7 (3.6-5.0) mmol/L Chloride 104.0 (98-107) mmol/L Carbon Dioxide 22 (22-30) mmol/L Anion Gap 14 mmol/L BUN 8 (7-17) mg/dL Creatinine 0.5 L (0.6-1.2) mg/dL Estimated GFR > 60 ml/min BUN/Creatinine Ratio 16 % Glucose 84 (65-100) mg/dL Calcium 8.6 (8.4-10.2) mg/dL Total Bilirubin 0.30 (0.1-1.2) mg/dL AST 13 (5-40) units/L ALT 11 (7-56) units/L Alkaline Phosphatase 64 (35-129) units/L Total Protein 5.7 L (6.3-8.2) g/dL Albumin 3.4 L (3.9-5) g/dL Albumin/Globulin Ratio 1.5 % HCG, Qual Negative (Negative) Urine Color (Yellow) Urine Turbidity (Clear) Urine pH (5.0-7.0) Ur Specific [place] (1.003-1.030) Urine Protein (Negative) mg/dL Urine Glucose (UA) (Negative) mg/dL Urine Ketones (Negative) mg/dL Urine Blood (Negative) Urine Nitrite (Negative) Urine Bilirubin (Negative) Urine Urobilinogen (<2.0) mg/dL Ur Leukocyte Esterase (Negative) Urine WBC (Auto) (0.0-6.0) /HPF Urine RBC (Auto) (0.0-6.0) /HPF U Epithel Cells (Auto) (0-13.0) /HPF Urine Mucus /HPF Urine HCG, Qual (Negative) Urine Opiates Screen Urine Methadone Screen Ur Barbiturates Screen Ur Phencyclidine Scrn Ur Amphetamines Screen U Benzodiazepines Scrn Urine Cocaine Screen U Marijuana (THC) Screen 08/13/20 08/13/20 Range/Units 23:41 23:41 WBC (4.5-11.0) K/mm3 RBC (3.65-5.03) M/mm3 Hgb (10.1-14.3) gm/dl Hct (30.3-42.9) % MCV (79-97) fl MCH (28-32) pg MCHC (30-34) % RDW (13.2-15.2) % Plt Count (140-440) K/mm3 Lymph % (Auto) (13.4-35.0) % [place] % (Auto) (0.0-7.3) % Eos % (Auto) (0.0-4.3) % Baso % (Auto) (0.0-1.8) % Lymph # (Auto) (1.2-5.4) K/mm3 [place] # (Auto) (0.0-0.8) K/mm3 Eos # (Auto) (0.0-0.4) K/mm3 Baso # (Auto) (0.0-0.1) K/mm3 Seg Neutrophils % (40.0-70.0) % Seg Neutrophils # (1.8-7.7) K/mm3 Sodium (137-145) mmol/L Potassium (3.6-5.0) mmol/L Chloride (98-107) mmol/L Carbon Dioxide (22-30) mmol/L Anion Gap mmol/L BUN (7-17) mg/dL Creatinine (0.6-1.2) mg/dL Estimated GFR ml/min BUN/Creatinine Ratio % Glucose (65-100) mg/dL Calcium (8.4-10.2) mg/dL Total Bilirubin (0.1-1.2) mg/dL AST (5-40) units/L ALT (7-56) units/L Alkaline Phosphatase (35-129) units/L Total Protein (6.3-8.2) g/dL Albumin (3.9-5) g/dL Albumin/Globulin Ratio % HCG, Qual (Negative) Urine Color Yellow (Yellow) Urine Turbidity Clear (Clear) Urine pH 6.0 (5.0-7.0) Ur Specific [place] 1.015 (1.003-1.030) Urine Protein >500 (Negative) mg/dL Urine Glucose (UA) Neg (Negative) mg/dL Urine Ketones Neg (Negative) mg/dL Urine Blood Neg (Negative) Urine Nitrite Neg (Negative) Urine Bilirubin Neg (Negative) Urine Urobilinogen < 2.0 (<2.0) mg/dL Ur Leukocyte Esterase Neg (Negative) Urine WBC (Auto) 3.0 (0.0-6.0) /HPF Urine RBC (Auto) 1.0 (0.0-6.0) /HPF U Epithel Cells (Auto) 13.0 (0-13.0) /HPF Urine Mucus 1+ /HPF Urine HCG, Qual Negative (Negative) Urine Opiates Screen Presumptive negative Urine Methadone Screen Presumptive negative Ur Barbiturates Screen Presumptive negative Ur Phencyclidine Scrn Presumptive negative Ur Amphetamines Screen Presumptive negative U Benzodiazepines Scrn Presumptive positive Urine Cocaine Screen Presumptive negative U Marijuana (THC) Screen Presumptive positive - Radiology Data Radiology results: report reviewed CT LUMBAR SPINE WITHOUT CONTRAST INDICATION: Patient complains of lower back pain, LEFT leg numbness. TECHNIQUE: All CT scans at this location are performed using CT dose reduction for ALARA by means of automated exposure control. Axial CT images were obtained through the lumbar spine. Sagittal and coronal reformatted images were produced. COMPARISON: None available. FINDINGS: Fracture: None. Subluxation: None. Spinal canal: No significant compromise. Disc spaces: Mild discogenic degenerative disease L4-5 with disc bulge. Facet joints: Normal. Paraspinal soft tissues: No soft tissue swelling. Normal. Additional findings: None. IMPRESSION: 1. No acute findings. 2. L4-5 disc bulging and mild discogenic degenerative disease - Medical Decision Making Patient slept the majority ED stay states she has received "Haldol" IV at the other facility. She received IV Toradol here. Patient was able to ambulate to the hospital bathroom without assistance. She was also able to provide a urine sample without signs of incontinence. CT lumbar spine does not show any acute abnormality. Patient had a recent CT abdomen pelvis performed less than 10 days ago. She has unreliable labs including CBC, BMP, and urinalysis results. She will be discharged home to continue her current pain medication. Although we do not find any signs of urinary tract infection she was instructed to take her medication as prescribed since we do not have access to her recent [place] work- up. Outpatient follow-up will be advised Recent [place] prescription monitoring site results 07/24/2020 4 05/05/2020 ALPRAZOLAM 1 MG TABLET 30.0 30 AN SHA 07/23/2020 2 07/21/2020 TRAMADOL HCL 50 MG TABLET 8.0 2 CH CLA 07/11/2020 2 07/11/2020 OXYCODONE-ACETAMINOPHEN 5-325 06/25/2020 4 05/05/2020 ALPRAZOLAM 1 MG TABLET 30.0 30 AN SHA 05/05/2020 4 05/05/2020 ALPRAZOLAM 1 MG TABLET 04/08/2020 2 04/08/2020 OXYCODONE HCL 5 MG TABLET 25.0 6 KI PHI [id number] 03/28/2020 2 03/28/2020 TRAMADOL HCL 50 MG TABLET 03/10/2020 2 03/10/2020 HYDROCODONE-ACETAMIN 5-325 MG 15.0 4 MA MARYCARMEN 03/09/2020 2 03/05/2020 HYDROCODONE-ACETAMIN 5-325 MG 12.0 3 DO WILLY 02/27/2020 2 02/26/2020 TRAMADOL HCL 50 MG TABLET 11/06/2019 3 10/28/2019 OXYCODONE-ACETAMINOPHEN 5-325 10/24/2019 3 10/24/2019 OXYCODONE-ACETAMINOPHEN 10-325 10.0 3 EU MCKAYLA 10/11/2019 1 10/10/2019 HYDROCODONE-ACETAMIN 5-325 MG Flexeril will be added to current regimen for additional muscle relaxants/pain relief Critical Care Time: No Critical care attestation.: If time is entered above; I have spent that time in minutes in the direct care of this critically ill patient, excluding procedure time. ED Disposition Clinical Impression: Lumbar pain with radiation down left leg, Lumbar degenerative disc disease Disposition: DC-01 TO HOME OR SELFCARE Is pt being admited?: No Does the pt Need Aspirin: No Condition: Stable Instructions: Radicular Pain, Acute Back Pain, Adult, Degenerative Disk Disease Additional Instructions: Take the medication as prescribed. Follow-up with your doctor or doctor/clinic provided. Return if symptoms worsen as indicated by your discharge instructions. Prescriptions: Cyclobenzaprine [Flexeril] 10 mg PO TID PRN #20 tablet PRN Reason: Muscle Spasm Ibuprofen [Motrin] 800 mg PO Q8HR PRN #20 tablet PRN Reason: Pain , Severe (7-10) Referrals: PRIMARY CARE, [Primary Care Provider] - 3-5 Days JAROD ZUNIGA MD [Staff Physician] - 3-5 Days (orthopedic doctor ) Time of Disposition: 00:44
[2020-08-13] MEDS ORDERED: KETOROLAC 30 MG/1 ML INJ IV ONE ×2 (21:41→23:45)
[2020-08-13] MEDS ORDERED: SODIUM CHLORIDE 0.9% 1000 ML 1,000 ML IV ONE ×2 (21:41)
[2020-08-13 22:10] LABS: Basophils % (Auto) 0.6 % (0.0-1.8); Eosinophils # (Auto) 0.2 K/mm3 (0.0-0.4); Eosinophils % (Auto) 3.1 % (0.0-4.3); Hematocrit 39.7 % (30.3-42.9); Hemoglobin 13.4 gm/dl (10.1-14.3); Lymphocytes # (Auto) 1.9 K/mm3 (1.2-5.4); Lymphocytes % (Auto) 24.4 % (13.4-35.0); Mean Corpuscular HGB Conc 34 % (30-34); Mean Corpuscular Volume 94 fl (79-97); Monocytes # (Auto) 0.5 K/mm3 (0.0-0.8); Platelet Count 250 K/mm3 (140-440); Red Blood Count 4.25 M/mm3 (3.65-5.03)
[2020-08-13 22:33] LABS: Alanine Aminotransferase 11 units/L (7-56); Albumin 3.4 g/dL (3.9-5); Blood Urea Nitrogen 8 mg/dL (7-17); Calcium 8.6 mg/dL (8.4-10.2); Hemolysis Index 11
[2020-08-13 22:35] LABS: BUN/Creatinine Ratio 16
--- NOTE | 2020-08-13 23:07 | Cat Scan Report ---
CT LUMBAR SPINE WITHOUT CONTRAST INDICATION: Patient complains of lower back pain, LEFT leg numbness. TECHNIQUE: All CT scans at this location are performed using CT dose reduction for ALARA by means of automated e xposure control. Axial CT images were obtained through the lumbar spine. Sagittal and coronal reforma tted images were produced. COMPARISON: None available. FINDINGS: Fracture: None. Subluxation: None. Spinal canal: No significant compromise. Disc spaces: Mild discogenic degenerative disease L4-5 with disc bulge. Facet joints: Normal. Paraspinal soft tissues: No soft tissue swelling. Normal. Additional findings: None. IMPRESSION: 1. No acute findings. 2. L4-5 disc bulging and mild discogenic degenerative disease Signer Name: Nigel Mora MD Signed: 08/13/2020 11:02 PM Workstation Name: [id number]
[2020-08-14 00:02] LABS: Bilirubin,Urine NEG (Negative); Blood,Urine NEG (Negative); Color,Urine Yellow (Yellow); Mucus,Urine 1+ /HPF; Urobilinogen,Urine < 2.0 mg/dL (<2.0)
[2020-08-14 00:03] LABS: HCG Qualitative,Urine Negative (Negative); Protein,Urine >500 mg/dL (Negative)
[2020-08-14 00:09] LABS: Amphetamine Screen,Urine PRESUMPTIVE NEGATIVE; Benzodiazepines Screen,Urine PRESUMPTIVE POSITIVE; Cannabinoid Screen,Urine PRESUMPTIVE POSITIVE; Cocaine Screen,Urine PRESUMPTIVE NEGATIVE; Methadone Screen,Urine PRESUMPTIVE NEGATIVE; Opiate Screen,Urine PRESUMPTIVE NEGATIVE
[2020-08-14 01:30] VITALS: BP 122/78
== END 2020-08-14 01:15 | disposition home or self-care (01) ==
LOC: ED 20:19
DX: M51.36 Other intervertebral disc degeneration, lumbar region (principal); F12.90 Cannabis use, unspecified, uncomplicated; Z79.899 Other long term (current) drug therapy; Z90.49 Acquired absence of other specified parts of digestive tract; Z91.041 Radiographic dye allergy status
CPT/HCPCS: 36415; 72131; 80053; 80307; 81001; 81025; 84703; 85025; 96374; 99284; J1885; J7030

== ENCOUNTER 2021-06-17 19:02 | Emergency (ER) | payer SELFPAY ==
[2021-06-17] MEDS ORDERED: MORPHINE 4 MG/1 ML INJ IM ONE (19:31)
[2021-06-17] MEDS ORDERED: ONDANSETRON 4 MG ODT TAB PO ONE (19:31)
--- NOTE | 2021-06-17 20:11 | Emergency Department Report ---
ED Abdominal Pain HPI - General Chief Complaint: Abdominal Pain Stated Complaint: PAIN PUI?: No Time Seen by Provider: 06/17/21 19:28 Source: patient Mode of arrival: Wheelchair Limitations: No Limitations - History of Present Illness Initial Comments: Chief complaint: "Irritable bowel syndrome." HPI: This is a 26-year-old female with history of irritable bowel syndrome,marijuana dependence, ovarian cyst, lumbar degenerative disc disease who presents with abdominal pain since yesterday. She has diffuse abdominal pain with nausea vomiting and diarrhea. She has attempted to self treat with clear liquid diet. She had persistent crampy severe signs and pain. She states that stress is the normal trigger. She explains, "I have a lot going on." She admits to depression. She denies suicidal ideation. Due to lack of insurance she has been unable to follow-up with outpatient physician. She has recently obtained health care coverage. She has an appointment with GI specialist on June 25. I have reviewed electronic record, patient has had recurrent abdominal pain since 2014. In July 2020 she was admitted for intractable abdominal pain nausea vomiting. Her work-up including HIDA scan surgical consult was normal. MD Complaint: abdominal pain -: Gradual, hour(s) (24 hours) Severity: severe Severity scale (0 -10): 9 Quality: cramping Consistency: constant Improves With: nothing Worsens With: nothing Associated Symptoms: nausea, vomiting, diarrhea - Related Data Previous Rx's Medication Instructions Recorded Last Taken Type Pantoprazole [Protonix] 40 mg PO QDAY #30 tablet 10/28/19 Unknown Rx Sucralfate [Carafate] 1 gm PO Q6HR #420 ml 10/28/19 Unknown Rx oxyCODONE /ACETAMINOPHEN [Percocet 1 tab PO Q6HR PRN #20 tablet 10/28/19 Unknown Rx 5/325] traMADoL [Ultram 50 MG tab] 50 mg PO Q4HR PRN #14 tablet 02/26/20 Unknown Rx Ondansetron [Zofran Odt] 4 mg PO Q8HR PRN #20 tab.rapdis 03/10/20 Unknown Rx Promethazine HCl [Phenergan SUPPOS] 25 mg RC Q8HR PRN #7 supp.rect 03/11/20 Unknown Rx Pantoprazole [Protonix] 40 mg PO QDAY 30 Days #30 tablet 08/09/20 Unknown Rx Cyclobenzaprine [Flexeril] 10 mg PO TID PRN #20 tablet 08/14/20 Unknown Rx Ibuprofen [Motrin] 800 mg PO Q8HR PRN #20 tablet 08/14/20 Unknown Rx Dicyclomine [Bentyl] 20 mg PO QID #120 tablet 06/17/21 Unknown Rx Sertraline [Zoloft] 50 mg PO QDAY #30 06/17/21 Unknown Rx Allergies Allergy/AdvReac Type Severity Reaction Status Date / Time Iv contrast AdvReac Shortness Uncoded 06/17/21 19:06 of Breath ED Review of Systems ROS: Stated complaint: PAIN Other details as noted in HPI Comment: All other systems reviewed and negative Constitutional: denies: fever, malaise Eyes: denies: as per HPI Respiratory: denies: cough, shortness of breath Gastrointestinal: abdominal pain, nausea, vomiting, diarrhea ED Past Medical Hx - Past Medical History Previous Medical History?: Yes Hx Hypertension: No Hx Heart Attack/AMI: No Hx Congestive Heart Failure: No Hx Diabetes: No Hx Liver Disease: No Hx Seizures: No Hx Asthma: No Hx COPD: No Additional medical history: Ovarian Cysts 08/04, ulcers, PID - Surgical History Past Surgical History?: Yes Additional Surgical History: tonsillectomy, 2 ovarian cysts removed left side. - Social History Smoking Status: Never Smoker Substance Use Type: Marijuana - Medications Home Medications: Home Medications Medication Instructions Recorded Confirmed Last Taken Type Pantoprazole [Protonix] 40 mg PO QDAY #30 tablet 10/28/19 08/07/20 Unknown Rx Sucralfate [Carafate] 1 gm PO Q6HR #420 ml 10/28/19 08/07/20 Unknown Rx oxyCODONE /ACETAMINOPHEN [Percocet 1 tab PO Q6HR PRN #20 tablet 10/28/19 08/07/20 Unknown Rx 5/325] traMADoL [Ultram 50 MG tab] 50 mg PO Q4HR PRN #14 tablet 02/26/20 08/07/20 Unknown Rx Ondansetron [Zofran Odt] 4 mg PO Q8HR PRN #20 tab.rapdis 03/10/20 08/07/20 Unknown Rx Promethazine HCl [Phenergan SUPPOS] 25 mg RC Q8HR PRN #7 supp.rect 03/11/20 08/07/20 Unknown Rx Pantoprazole [Protonix] 40 mg PO QDAY 30 Days #30 tablet 08/09/20 Unknown Rx Cyclobenzaprine [Flexeril] 10 mg PO TID PRN #20 tablet 08/14/20 Unknown Rx Ibuprofen [Motrin] 800 mg PO Q8HR PRN #20 tablet 08/14/20 Unknown Rx Dicyclomine [Bentyl] 20 mg PO QID #120 tablet 06/17/21 Unknown Rx Sertraline [Zoloft] 50 mg PO QDAY #30 06/17/21 Unknown Rx ED Physical Exam - General Limitations: No Limitations General appearance: alert, in no apparent distress, other (Tearful, obviously uncomfortable, obviously upset, nontoxic-appearing) - Head Head exam: Present: atraumatic, normocephalic - Eye Eye exam: Present: normal appearance - ENT ENT exam: Present: mucous membranes moist - Neck Neck exam: Present: normal inspection, full ROM - Respiratory Respiratory exam: Present: normal lung sounds bilaterally. Absent: respiratory distress, wheezes, rales, rhonchi - Cardiovascular Cardiovascular Exam: Present: regular rate, normal rhythm, normal heart sounds. Absent: systolic murmur, diastolic murmur, rubs, gallop - GI/Abdominal GI/Abdominal exam: Present: soft, normal bowel sounds. Absent: distended, tenderness, guarding, rebound - Extremities Exam Extremities exam: Present: normal inspection - Neurological Exam Neurological exam: Present: alert, oriented X3 - Psychiatric Psychiatric exam: Present: normal affect, other (Tearful obviously upset) - Skin Skin exam: Present: warm, dry, intact, normal color. Absent: rash ED Course Vital Signs 06/17/21 06/17/21 19:06 19:38 Temperature 98.6 F Pulse Rate 86 Respiratory 18 18 Rate Blood Pressure 158/96 O2 Sat by Pulse 98 Oximetry ED Medical Decision Making - Lab Data Result diagrams: 06/17/21 19:56 06/17/21 19:56 - Medical Decision Making This is a 36-year-old female with history of irritable bowel syndrome recurrent abdominal pain and vomiting. She improved with IM morphine, IM Haldol, p.o. Zofran. She has been prescribed Bentyl and Haldol in the past according to her report. She states that this combination works best. I have prescribed Bentyl and Zoloft. I have referred her to internal medicine physician. Chemistry lipase hCG within normal limits. CBC unremarkable. Patient did improve. No noted vomiting in the emergency department over the last 4 hours. I suspect codiagnosis of cannabinoid hyperemesis syndrome Critical care attestation.: If time is entered above; I have spent that time in minutes in the direct care of this critically ill patient, excluding procedure time. ED Disposition Clinical Impression: Irritable bowel syndrome Disposition: HOME / SELF CARE / HOMELESS Is pt being admited?: No Does the pt Need Aspirin: No Condition: Stable Instructions: Abdominal Pain (ED), Diet for Irritable Bowel Syndrome Prescriptions: Dicyclomine [Bentyl] 20 mg PO QID #120 tablet Sertraline [Zoloft] 50 mg PO QDAY #30 Referrals: LINDSEY BURNETTE MD [Staff Physician] - 3-5 Days
[2021-06-17] MEDS ORDERED: HALOPERIDOL LACTATE 5 MG/1 ML INJ IM ONE (20:15)
[2021-06-17 20:16] LABS: Basophils % (Auto) 0.3 % (0.0-1.8); Eosinophils % (Auto) 0.1 % (0.0-4.3); Hematocrit 44.9 % (30.3-42.9); Hemoglobin 14.6 gm/dl (10.1-14.3); Lymphocytes # (Auto) 1.8 K/mm3 (1.2-5.4); Lymphocytes % (Auto) 15.6 % (13.4-35.0); Mean Corpuscular HGB Conc 32 % (30-34); Mean Corpuscular Volume 94 fl (79-97); Monocytes # (Auto) 0.8 K/mm3 (0.0-0.8); Monocytes % (Auto) 6.7 % (0.0-7.3); Platelet Count 278 K/mm3 (140-440); Red Blood Count 4.78 M/mm3 (3.65-5.03); Red Cell Distribution Width 14.5 % (13.2-15.2)
[2021-06-17 20:39] LABS: Alanine Aminotransferase 13 units/L (7-56); Albumin 4.5 g/dL (3.9-5); BUN/Creatinine Ratio 20; Blood Urea Nitrogen 10 mg/dL (7-17); Calcium 9.4 mg/dL (8.4-10.2); Hemolysis Index 39
[2021-06-17 22:35] VITALS: BP 123/76
== END 2021-06-17 22:23 | disposition home or self-care (01) ==
LOC: ED 19:02
DX: K58.9 Irritable bowel syndrome, unspecified (principal); F12.10 Cannabis abuse, uncomplicated
CPT/HCPCS: 36415; 80053; 83690; 84703; 85025; 96372; 99283; J1630; J2270; J3490; Q0162

== ENCOUNTER 2021-07-29 08:17 | Emergency (ER) | payer SELFPAY ==
[2021-07-29] MEDS ORDERED: diphenhydrAMINE 25 MG CAP PO ONE (09:13)
[2021-07-29] MEDS ORDERED: ONDANSETRON 4 MG ODT TAB PO ONE (09:13)
[2021-07-29] MEDS ORDERED: METOCLOPRAMIDE 10 MG TAB PO ONE (09:13)
[2021-07-29] MEDS ORDERED: FAMOTIDINE 20 MG TAB PO ONE (09:14)
[2021-07-29] MEDS ORDERED: KETOROLAC 10 MG TAB PO ONE (09:15)
[2021-07-29 10:01] LABS: HCG Qualitative,Urine Negative (Negative)
--- NOTE | 2021-07-29 10:11 | Emergency Department Report ---
ED Abdominal Pain HPI - General Chief Complaint: Abdominal Pain Stated Complaint: STOMACH PAIN PLYLORI Time Seen by Provider: 07/29/21 08:45 Source: patient Mode of arrival: Ambulatory Limitations: No Limitations - History of Present Illness Initial Comments: 26 yo female wiht pmh of PID and torsion s/p left fallopian and ovary removal presents to ed for evaluation of abdominal pain. She states that pain started 2 days ago with n/v/d and dysuria but denies fever, sob, chest pain. She states that she was seen by her GI doctor yesterday, diagnosed with H. pylori but was not started on any medications. She states that she is scheduled to see her primary care doctor today also who manages her abdominal pain. She states that she has had persistent abdominal pain and had a normal EGD and colonoscopy with H.pylori last month. She states that she has not taken anything for has pain or n/v. MD Complaint: abdominal pain -: Gradual, days(s) (2) Location: LUQ, LLQ Radiation: none Migration to: no migration Severity scale (0 -10): 10 Quality: cramping, aching Consistency: constant Associated Symptoms: nausea, vomiting, diarrhea, dysuria. denies: fever, chills, hematemesis, hematochezia, melena, hematuria, anorexia, syncope - Related Data Previous Rx's Medication Instructions Recorded Last Taken Type Pantoprazole [Protonix] 40 mg PO QDAY #30 tablet 10/28/19 Unknown Rx Sucralfate [Carafate] 1 gm PO Q6HR #420 ml 10/28/19 Unknown Rx oxyCODONE /ACETAMINOPHEN [Percocet 1 tab PO Q6HR PRN #20 tablet 10/28/19 Unknown Rx 5/325] traMADoL [Ultram 50 MG tab] 50 mg PO Q4HR PRN #14 tablet 02/26/20 Unknown Rx Ondansetron [Zofran Odt] 4 mg PO Q8HR PRN #20 tab.rapdis 03/10/20 Unknown Rx Promethazine HCl [Phenergan SUPPOS] 25 mg RC Q8HR PRN #7 supp.rect 03/11/20 Unknown Rx Pantoprazole [Protonix] 40 mg PO QDAY 30 Days #30 tablet 08/09/20 Unknown Rx Cyclobenzaprine [Flexeril] 10 mg PO TID PRN #20 tablet 08/14/20 Unknown Rx Ibuprofen [Motrin] 800 mg PO Q8HR PRN #20 tablet 08/14/20 Unknown Rx Promethazine [Phenergan] 25 mg CO Q6HR PRN #10 supp.rect 06/16/21 Unknown Rx Dicyclomine [Bentyl] 20 mg PO QID #120 tablet 06/17/21 Unknown Rx Sertraline [Zoloft] 50 mg PO QDAY #30 06/17/21 Unknown Rx Allergies Allergy/AdvReac Type Severity Reaction Status Date / Time Iodinated Contrast Media AdvReac Anaphylaxis Verified 07/17/21 04:19 Iv contrast AdvReac Shortness Uncoded 07/17/21 04:19 of Breath ED Review of Systems ROS: Stated complaint: STOMACH PAIN PLYLORI Other details as noted in HPI Comment: All other systems reviewed and negative Constitutional: denies: chills, diaphoresis, fever, malaise, weakness Eyes: denies: eye pain ENT: denies: ear pain Respiratory: denies: cough, shortness of breath, SOB with exertion, SOB at rest Cardiovascular: denies: chest pain, palpitations, dyspnea on exertion, ortho pnea, edema, syncope, paroxysmal nocturnal dyspnea Endocrine: denies: no symptoms reported Gastrointestinal: abdominal pain, nausea, vomiting, diarrhea. denies: hematemesis, melena, hematochezia Genitourinary: dysuria. denies: urgency, frequency, hematuria, discharge Musculoskeletal: denies: back pain Skin: denies: rash Neurological: denies: headache, weakness Psychiatric: denies: anxiety Hematological/Lymphatic: denies: easy bleeding, easy bruising ED Past Medical Hx - Past Medical History Hx Hypertension: No Hx Heart Attack/AMI: No Hx Congestive Heart Failure: No Hx Diabetes: No Hx Liver Disease: No Hx Seizures: No Hx Asthma: No Hx COPD: No Additional medical history: Ovarian Cysts 08/04, ulcers, PID - Surgical History Additional Surgical History: tonsillectomy, 2 ovarian cysts removed left side. - Social History Smoking Status: Never Smoker Substance Use Type: Marijuana - Medications Home Medications: Home Medications Medication Instructions Recorded Confirmed Last Taken Type Pantoprazole [Protonix] 40 mg PO QDAY #30 tablet 10/28/19 08/07/20 Unknown Rx Sucralfate [Carafate] 1 gm PO Q6HR #420 ml 10/28/19 08/07/20 Unknown Rx oxyCODONE /ACETAMINOPHEN [Percocet 1 tab PO Q6HR PRN #20 tablet 10/28/19 08/07/20 Unknown Rx 5/325] traMADoL [Ultram 50 MG tab] 50 mg PO Q4HR PRN #14 tablet 02/26/20 08/07/20 Unknown Rx Ondansetron [Zofran Odt] 4 mg PO Q8HR PRN #20 tab.rapdis 03/10/20 08/07/20 Unknown Rx Promethazine HCl [Phenergan SUPPOS] 25 mg RC Q8HR PRN #7 supp.rect 03/11/20 08/07/20 Unknown Rx Pantoprazole [Protonix] 40 mg PO QDAY 30 Days #30 tablet 08/09/20 Unknown Rx Cyclobenzaprine [Flexeril] 10 mg PO TID PRN #20 tablet 08/14/20 Unknown Rx Ibuprofen [Motrin] 800 mg PO Q8HR PRN #20 tablet 08/14/20 Unknown Rx Promethazine [Phenergan] 25 mg CO Q6HR PRN #10 supp.rect 06/16/21 Unknown Rx Dicyclomine [Bentyl] 20 mg PO QID #120 tablet 06/17/21 Unknown Rx Sertraline [Zoloft] 50 mg PO QDAY #30 06/17/21 Unknown Rx ED Physical Exam - General Limitations: No Limitations General appearance: alert, in no apparent distress - Head Head exam: Present: atraumatic, normocephalic - Eye Eye exam: Present: normal appearance. Absent: conjunctival injection - Neck Neck exam: Present: normal inspection - Respiratory Respiratory exam: Present: normal lung sounds bilaterally. Absent: respiratory distress, wheezes, rales, rhonchi, stridor, chest wall tenderness - Cardiovascular Cardiovascular Exam: Present: regular rate, normal heart sounds. Absent: normal rhythm - GI/Abdominal GI/Abdominal exam: Present: soft, tenderness ([id number]), normal bowel sounds. Absent: distended, guarding, rebound, rigid - Extremities Exam Extremities exam: Present: normal inspection - Back Exam Back exam: Present: normal inspection. Absent: tenderness, CVA tenderness (R), CVA tenderness (L) - Neurological Exam Neurological exam: Present: alert, oriented X3 - Psychiatric Psychiatric exam: Present: normal affect, normal mood - Skin Skin exam: Present: warm, dry, intact, normal color ED Course Vital Signs 07/29/21 08:40 Temperature 98.6 F Pulse Rate 89 Respiratory 16 Rate O2 Sat by Pulse 98 Oximetry ED Medical Decision Making - Medical Decision Making 26 yo female wiht pmh of PID and torsion s/p left fallopian and ovary removal presents to ed for evaluation of abdominal pain. She states that pain started 2 days ago with n/v/d and dysuria but denies fever, sob, chest pain. She states that she was seen by her GI doctor yesterday, diagnosed with H. pylori but was not started on any medications. She states that she is scheduled to see her primary care doctor today also who manages her abdominal pain. She states that she has had persistent abdominal pain and had a normal EGD and colonoscopy with H.pylori last month. She states that she has not taken anything for has pain or n/v. UA negative for UTI, and urine test negative. Patient without relief but is requesting to be discharged so that she can make it to her appointment. She is encouraged to go to appointment and follow up in ED as needed. She verbalized understanding of and agreement with plan of care. Critical care attestation.: If time is entered above; I have spent that time in minutes in the direct care of this critically ill patient, excluding procedure time. ED Disposition Clinical Impression: Abdominal pain Qualifiers: Abdominal location: left lower quadrant Qualified Code(s): R10.32 - Left lower quadrant pain Disposition: HOME / SELF CARE / HOMELESS Is pt being admited?: No Does the pt Need Aspirin: No Condition: Stable Instructions: Abdominal Pain, Adult, [id number], Abdominal Pain (ED) Additional Instructions: Follow-up with primary care/GI doctor now as planned. Return to the ER for worsening symptoms. Referrals: LUIS HIGUERA MD [Staff Physician] - 3-5 Days Time of Disposition: 10:11
[2021-07-29 10:15] LABS: Bacteria,Urine 1+ /HPF (Negative); Calcium Oxalate Crystals,Urine 3+; Mucus,Urine 3+ /HPF
[2021-07-29 10:42] LABS: Bilirubin,Urine Negative (Negative); Blood,Urine Negative (Negative); Color,Urine Yellow (Yellow); Protein,Urine >500 mg/dL (Negative)
== END 2021-07-29 10:17 | disposition home or self-care (01) ==
LOC: ED 08:17
DX: R10.32 Left lower quadrant pain (principal); F12.90 Cannabis use, unspecified, uncomplicated; Z91.041 Radiographic dye allergy status
CPT/HCPCS: 81001; 81025; 99283; J3490; Q0162